=== PATIENT | female | born 1935 | race Caucasian/White ===

== ENCOUNTER 2018-11-19 21:10 | Inpatient (IN) | payer MEDICARE, OTHER ==
[~2018-11-19] VITALS: Ht 144.8 cm; Wt 51.9 kg
[2018-11-19] MEDS ORDERED: ONDANSETRON 4 MG INJ IV STA (21:22)
[2018-11-19] MEDS ORDERED: morphine 4 MG/ML VIAL IV STA (21:22)
[2018-11-19] MEDS ORDERED: ONDANSETRON 4 MG INJ IV PRN (22:30)
[2018-11-19] MEDS ORDERED: ACETAMINOPHEN 325 MG TAB PO PRN (22:30)
--- NOTE | 2018-11-19 22:56 | ERD ---
ER Documentation Chief Complaint Chief Complaint bib ra from home for left hip pain s/p fall in kitchen HPI Patient is a 83-year-old female with no medical problems who presents after a trip and fall. Please note that an [employer] multi care technician was used for the entire history and physical exam. The patient was brought in by ambulance. She had a trip and fall. She had left-sided hip pain. This happened just prior to arrival. She is not able to move her left hip at all. She has not gotten any pain medicines as of yet. She did not hit her head. Upon review of old medical records this is the patient's first visit to the emergency department. The patient does not know the name of the primary doctor. ROS All systems reviewed and are negative except as per history of present illness. Allergies Allergies: Coded Allergies: No Known Allergy (Unverified , 11/19/18) PMhx/Soc Medical and Surgical Hx: pt denies Medical Hx, pt denies Surgical Hx Hx Alcohol Use: No Hx Substance Use: No Hx Tobacco Use: No Smoking Status: Current every day smoker FmHx Family History: No diabetes Physical Exam Vitals Vital Signs Date Temp Pulse Resp B/P (MAP) Pulse Ox O2 O2 Flow FiO2 Time Delivery Rate 11/19/18 98.1 90 19 137/74 100 21:15 (95) Physical Exam Const: No acute distress Head: Atraumatic Eyes: Normal Conjunctiva ENT: Normal External Ears, Nose and Mouth. Neck: Full range of motion. No meningismus. Resp: Clear to auscultation bilaterally Cardio: Regular rate and rhythm, no murmurs Abd: Soft, non tender, non distended. Normal bowel sounds Skin: No petechiae or rashes Back: No midline or flank tenderness Ext: Exquisite pain in the left hip with even minimal range of motion Neur: Awake and alert Psych: Normal Mood and Affect Result Diagram: 11/19/18213111/19/182132 Results 24 hrs Laboratory Tests Test 11/19/18 21:32 11/19/18 21:33 White Blood Count 7.7 10^3/ul Red Blood Count 3.97 10^6/ul Hemoglobin 11.5 g/dl Hematocrit 35.7 % Mean Corpuscular Volume 89.9 fl Mean Corpuscular Hemoglobin 29.0 pg Mean Corpuscular Hemoglobin Concent 32.2 g/dl Red Cell Distribution Width 13.7 % Platelet Count 268 10^3/UL Mean Platelet Volume 9.4 fl Immature Granulocytes % 0.400 % Neutrophils % 65.8 % Lymphocytes % 27.8 % Monocytes % 5.2 % Eosinophils % 0.4 % Basophils % 0.4 % Nucleated Red Blood Cells % 0.0 /100WBC Immature Granulocytes # 0.030 10^3/ul Neutrophils # 5.1 10^3/ul Lymphocytes # 2.2 10^3/ul Monocytes # 0.4 10^3/ul Eosinophils # 0.0 10^3/ul Basophils # 0.0 10^3/ul Nucleated Red Blood Cells # 0.0 10^3/ul Prothrombin Time 14.1 Sec Prothrombin Time Ratio 1.1 INR International Normalized Ratio 1.08 Activated Partial Thromboplast Time 30.7 Sec Sodium Level 140 mmol/L Potassium Level 4.3 mmol/L Chloride Level 106 mmol/L Carbon Dioxide Level 29 mmol/L Anion Gap 5 Blood Urea Nitrogen 20 mg/dl Creatinine 0.71 mg/dl Est Glomerular Filtrat Rate mL/min mL/min Glucose Level 107 mg/dl Calcium Level 9.5 mg/dl Troponin I < 0.012 ng/ml Current Medications Medications Dose Sig/Alejo Start Time Status Last (Trade) Ordered Route PRN Stop Time Admin Dose Reason Admin Morphine 4 mg ONCE STAT 11/19/18 DC 11/19/18 Sulfate IV 21:22 11/19/18 21:47 (morphine) 21:23 Ondansetron 4 mg ONCE STAT 11/19/18 DC 11/19/18 HCl (Zofran IV 21:22 11/19/18 21:47 Inj) 21:23 Ondansetron 4 mg BRIDGE ORDER 11/19/18 HCl (Zofran PRN IV 22:30 11/20/18 Inj) NAUSEA/VOMITI 22:29 NG 650 mg ER BRIDGE 11/19/18 Acetaminophen PRN PO 22:30 11/20/18 (Tylenol .MILD PAIN 22:29 Tab) 1-3 OR TEMP Procedures/MDM X-ray Hip 2V Interpreted by me: Bones: Intertrochanteric hip fracture without displacement Joints: No dislocation Foreign body: None Chest x-ray read by radiology. EKG read by me: Rate/Rhythm: Regular rate and rhythm at a normal rate Intervals: Normal Impression: No evidence of ischemia or arrhythmia Smoking Cessation Therapy: Pt. was lectured for greater than 3 minutes on the health risks of continued smoking and the benefits of cessation. Patient is an 83-year-old female presents after a trip and fall. She has a left-sided hip fracture. I spoke with Dr. Anthony from orthopedic surgery who will see the patient in consultation. The patient will be admitted to the care of Dr. Sy from the panel team for an inpatient medical surgical bed. Departure Diagnosis: Primary Impression: Hip fracture Encounter type: initial encounter Fracture type: closed Laterality: left Qualified Codes: S72.002A - Fracture of unspecified part of neck of left femur, initial encounter for closed fracture Additional Impression: Fall Encounter type: initial encounter Qualified Codes: W19.XXXA - Unspecified fall, initial encounter Condition: CORI Newman MD November 19, 2018 22:56
[2018-11-19 23:32] VITALS: Ht 144.8 cm; Wt 51.9 kg
[2018-11-19 23:41] VITALS: BP 130/60; PULSE 72; RESP 18
[2018-11-20] VITALS (22 sets, daily range): BP systolic 108–162; BP diastolic 52–83; PULSE 64–88; RESP 10–22
[2018-11-20] MEDS ORDERED: HYDROCODONE/APAP (5/325) TAB PO PRN ×2 (01:00)
[2018-11-20] MEDS ORDERED: ONDANSETRON 4 MG INJ IV PRN ×2 (01:00→16:30)
[2018-11-20] MEDS ORDERED: NACL 0.9% 3 ML SYG IV SCH (01:00)
[2018-11-20] MEDS ORDERED: ALBUTEROL/IPRATROPIUM (NEB) 3 ML AMP HHN PRN (01:00)
--- NOTE | 2018-11-20 01:01 | CONS ---
Assessment/Plan Assessment/Plan Hospital Course (Demo Recall) 83-year-old female had a mechanical fall from one step sustained a minimally displaced left intertrochanteric hip fracture. She is a very active 83-year-old female and is completely independent. I discussed the benefits and risks with patient and family. Treatment options discussed. I strongly recommended surgical fixation with intramedullary nail. Risks include but not limited to anesthesia, medical complications, bleeding, infection, , DVT, nonunion, malunion, hardware failure, neurovascular injury, need for further surgery. He understood these benefits and risks and wished to proceed with surgery. Plan: Nonweightbearing left lower extremity Medical clearance N.p.o. Surgery plan for the evening of 11/20/2018 Elena catheter Pain control DVT prophylaxis: SCDs while admitted. Lovenox 40 mg daily x6 weeks will be started postop day #1 Consultation Date/Type/Reason Admit Date/Time November 19, 2018 at 22:26 Date of Consultation: November 19, 2018 Reason for Consultation Left IT fracture Date/Time of Note DATE: 11/20/18 TIME: 01:00 Hx of Present Illness 83-year-old female that down from a single step and fell onto her left side. She was unable to get up and bear weight. She presented to the emergency department evaluation at hospital where she was diagnosed with a left intertrochanteric hip fracture. Orthopedics was consulted. Patient denies pain elsewhere. Patient denies numbness and tingling. Patient denies any other medical problems. Pain is relatively well controlled when she is lying still. She is a very active 83-year-old female she does not use gait aids. She is completely independent. Patient denies fever, chills, shortness of breath, chest pain, nausea/vomiting, constipation, diarrhea, numbness, and tingling. Patient did have recent upper respiratory infection and was on antibiotics last week. Past Medical History Medications Current Medications Ondansetron HCl (Zofran Inj) 4 mg BRIDGE ORDER PRN IV NAUSEA/VOMITING; Start 11/19/18 at 22:30; Stop 11/20/18 at 22:29 Acetaminophen (Tylenol Tab) 650 mg ER BRIDGE PRN PO .MILD PAIN 1-3 OR TEMP; Start 11/19/18 at 22:30; Stop 11/20/18 at 22:29 Allergies: Coded Allergies: No Known Allergy (Unverified , 5/5/19) Social History Alcohol Use: none Smoking Status: Current every day smoker Drug Use: none Exam/Review of Systems Exam Vitals Vital Signs Date Temp Pulse Resp B/P (MAP) Pulse Ox O2 O2 Flow FiO2 Time Delivery Rate 11/19/18 98.1 72 18 130/60 93 Room Air 23:41 (83) Exam General: Awake, alert, in no acute distress, pleasant and cooperative Heart: regular rhythm Lungs: breathing comfortably, no tachypnea or dyspnea MUSCULOSKELETAL: Left lower extremity: Skin is intact. No significant shortening or asymmetric rotation compared to contralateral extremity Sensation intact to light touch in a sural, saphenous, deep peroneal, superficial peroneal, medial and lateral plantar nerve distribution. Motor is intact, patient able to dorsiflex and plantarflex ankle and extend and flex great toe. Dorsalis Pedis pulse +2, Brisk capillary refill. Compartments are soft. Calves non-tender to palpation bilaterally. Results Result Diagram: 11/19/18213111/19/182132 Results 24hrs Laboratory Tests Test 11/19/18 21:32 11/19/18 21:33 White Blood Count 7.7 Red Blood Count 3.97 L Hemoglobin 11.5 L Hematocrit 35.7 L Mean Corpuscular Volume 89.9 Mean Corpuscular Hemoglobin 29.0 Mean Corpuscular Hemoglobin Concent 32.2 Red Cell Distribution Width 13.7 Platelet Count 268 Mean Platelet Volume 9.4 Immature Granulocytes % 0.400 Neutrophils % 65.8 Lymphocytes % 27.8 Monocytes % 5.2 Eosinophils % 0.4 Basophils % 0.4 Nucleated Red Blood Cells % 0.0 Immature Granulocytes # 0.030 Neutrophils # 5.1 Lymphocytes # 2.2 Monocytes # 0.4 Eosinophils # 0.0 Basophils # 0.0 Nucleated Red Blood Cells # 0.0 Prothrombin Time 14.1 Prothrombin Time Ratio 1.1 INR International Normalized Ratio 1.08 Activated Partial Thromboplast Time 30.7 Sodium Level 140 Potassium Level 4.3 Chloride Level 106 Carbon Dioxide Level 29 Anion Gap 5 Blood Urea Nitrogen 20 Creatinine 0.71 Est Glomerular Filtrat Rate mL/min Glucose Level 107 Calcium Level 9.5 Troponin I < 0.012 Imaging Imaging AP pelvis, AP lateral left hip, AP lateral left femur demonstrate a minimally displaced left intratrochanteric hip fracture. Medications Medication Current Medications Ondansetron HCl (Zofran Inj) 4 mg BRIDGE ORDER PRN IV NAUSEA/VOMITING; Start 11/19/18 at 22:30; Stop 11/20/18 at 22:29 Acetaminophen (Tylenol Tab) 650 mg ER BRIDGE PRN PO .MILD PAIN 1-3 OR TEMP; Start 11/19/18 at 22:30; Stop 11/20/18 at 22:29 SHAHNAZ PEPPER MD November 20, 2018 01:01
[2018-11-20] MEDS: DEXTROSE 5%-0.45% NACL 1,000 ML IV SCH ×2 (01:38→13:16)
--- NOTE | 2018-11-20 06:57 | HP ---
Date/Time of Note Date/Time of Note DATE: 11/20/18 TIME: 06:48 Assessment/Plan VTE Prophylaxis Risk score (from Ns)>0 risk: 10 SCD applied (from [facility]): Yes SCD contraindicated: low risk/ambulating Pharmacological prophylaxis: NA/contraindicated Pharm contraindication: other (Awaiting orthopedic surgical intervention) Lines/Catheters [facility]ter [facility] (from [facility]): Peripheral IV Urinary Cath still in place: Yes Reason Cath still needed: other (indicate) (Patient with severe left hip pain) Assessment/Plan Assessment/Plan 83-year-old female with no significant past medical history presented with left hip pain status post fall and found to have minimally displaced left femoral intertrochanteric fracture PLAN -Keep n.p.o. with IV fluid -Pain management -Ortho following -Patient has no active cardiac symptoms. EKG without acute ischemic change. Patient has been active prior to this current situation. No indication for additional studies including 2D echo or a cardiac cath since the patient does not have acute cardiac symptoms and is no history of cardiopulmonary disease. She may proceed with planned surgery Result Diagram: 11/20/18 0414 11/19/18 2133 Results 24hrs Laboratory Tests Test 11/19/18 21:32 11/19/18 21:33 11/20/18 04:14 White Blood Count 7.7 9.2 Red Blood Count 3.97 L 3.51 L Hemoglobin 11.5 L 10.3 L Hematocrit 35.7 L 31.5 L Mean Corpuscular Volume 89.9 89.7 Mean Corpuscular Hemoglobin 29.0 29.3 Mean Corpuscular Hemoglobin Concent 32.2 32.7 Red Cell Distribution Width 13.7 14.0 Platelet Count 268 235 Mean Platelet Volume 9.4 9.9 Immature Granulocytes % 0.400 0.400 Neutrophils % 65.8 80.8 H Lymphocytes % 27.8 12.2 L Monocytes % 5.2 6.3 Eosinophils % 0.4 0.1 Basophils % 0.4 0.2 Nucleated Red Blood Cells % 0.0 0.0 Immature Granulocytes # 0.030 0.040 H Neutrophils # 5.1 7.4 Lymphocytes # 2.2 1.1 Monocytes # 0.4 0.6 Eosinophils # 0.0 0.0 Basophils # 0.0 0.0 Nucleated Red Blood Cells # 0.0 0.0 Prothrombin Time 14.1 Prothrombin Time Ratio 1.1 INR International Normalized Ratio 1.08 Activated Partial Thromboplast Time 30.7 Sodium Level 140 Potassium Level 4.3 Chloride Level 106 Carbon Dioxide Level 29 Anion Gap 5 Blood Urea Nitrogen 20 Creatinine 0.71 Est Glomerular Filtrat Rate mL/min Glucose Level 107 Calcium Level 9.5 Troponin I < 0.012 HPI/ROS Admit Date/Time Admit Date/Time November 19, 2018 at 22:26 Hx of Present Illness This is an 83-year-old female with no significant past medical history who presents to the ER complaining of left hip pain status post fall. Seems like she tripped going down a step. She denied dizziness, chest pain, palpitation or shortness of breath prior to her fall. No imaging in the ER shows Minimally displaced left femoral intertrochanteric fracture. She has been evaluated by Ortho with plan for surgical intervention. Currently, patient is only compla ining of pain when she moves and as a result she is afraid to go to the bathroom. She is okay with the placement of a Elena. Denies chest pain, shortness of breath, palpitation. PMH/Family/Social Past Medical History Medical History: other (See HPI) Medications Current Medications Ondansetron HCl (Zofran Inj) 4 mg BRIDGE ORDER PRN IV NAUSEA/VOMITING; Start 11/19/18 at 22:30; Stop 11/20/18 at 22:29 Acetaminophen (Tylenol Tab) 650 mg ER BRIDGE PRN PO .MILD PAIN 1-3 OR TEMP; Start 11/19/18 at 22:30; Stop 11/20/18 at 22:29 Dextrose/Sodium Chloride 1,000 ml @ 80 mls/hr [id number] IV Last administered on 11/20/18at 01:38; Admin Dose 80 MLS/HR; Start 11/20/18 at 00:59 IV Flush (NS 3 ml) 3 ml PER PROTOCOL IV ; Start 11/20/18 at 01:00 Ondansetron HCl (Zofran Inj) 4 mg Q6H PRN IV NAUSEA/VOMITING; Start 11/20/18 at 01:00 Acetaminophen (Tylenol Tab) 650 mg Q6H PRN PO .PAIN 1-3 OR TEMP; Start 11/20/18 at 01:00 Acetaminophen/ Hydrocodone Bitart ([place] (5/325)) 1 tab Q6H PRN PO .MOD PAIN 4- 6; Start 11/20/18 at 01:00 Acetaminophen/ Hydrocodone Bitart ([place] ()) 2 tab Q6H PRN PO .SEVERE PAIN 7-10; Start 11/20/18 at 01:00 Albuterol/ Ipratropium (Duoneb) 3 ml Q2H RESP THERAPY PRN HHN SHORTNESS OF BREATH; Start 11/20/18 at 01:00 Coded Allergies: No Known Allergy (Unverified , 11/19/18) Past Surgical History Past Surgical Hx: other (HPI) Family History Significant Family History: no pertinent family hx Social History Alcohol Use: none Smoking Status: Unknown if ever smoked Drug Use: none Exam/Review of Systems Vital Signs Vitals Vital Signs Date Temp Pulse Resp B/P (MAP) Pulse Ox O2 O2 Flow FiO2 Time Delivery Rate 11/19/18 98.1 72 18 130/60 93 Room Air 23:41 (83) Intake and Output 11/19/18 11/19/18 11/20/18 1515:00 23:00 07:00 IntakeIntake Total 320 ml BalanceBalance 320 ml Exam Constitutional: other (No acute distress) Head: normocephalic, atraumatic Eyes: EOMI, PERRL Respiratory: clear to auscultation, normal air movement Cardiovascular: regular rate and rhythm, nl pulses Gastrointestinal: soft, non-tender Extremities: normal pulses, other (Left hip pain elicited on palpation. Range of motion is limited due to pain) KIMBERLY AGUSTIN MD November 20, 2018 06:57
[2018-11-20] MEDS ORDERED: HYDROmorphONE 0.5 MG/0.5 ML SYG IV PRN (09:30)
[2018-11-20] MEDS ORDERED: OXYCODONE/ACETAMINOPHEN (5/325) TAB PO ONE (11:30)
--- NOTE | 2018-11-20 11:40 | PN ---
Date/Time of Note Date/Time of Note DATE: 11/20/18 TIME: 11:40 Assessment/Plan VTE Prophylaxis Risk score (from Ns)>0 risk: 10 SCD applied (from Ns): Yes Pharmacological prophylaxis: NA/contraindicated Pharm contraindication: surgical contra Lines/Catheters IV [facility] Type (from [facility]): Peripheral IV Urinary Cath still in place: Yes Reason Cath still needed: other (indicate) Assessment/Plan Hospital Course SUBJECTIVE: Having 10 out of 10 pain on hip OBJECTIVE: Vital signs-see below PHYSICAL EXAM: Constitutional: Adequately built,not in acute distress. HEENT: Head atraumatic and normocephalic. Eyes: Extraocular muscles intact. Ani cteric sclerae. Pupils equal bilaterally, reactive to light. NECK: Supple without lymph node. CHEST: Clear and good breath sounds equally. No wheezing. No rhonchi. HEART: S1, S2. Regular rate and rhythm. ABDOMEN: Soft/non tender with no rebound tenderness. Bowel sounds were present. EXTREMITIES: L Hip w/tenderness. No cyanosis, clubbing or edema. NEUROLOGIC: Alert and oriented x3. No focal deficit. No sensory deficit. PSYCHOSOCIAL: No signs of depression. INTEGUMENTARY: No open wounds. ASSESSMENT AND PLAN:83 yo f w/no pmh here with mechanical fall/left displaced intertrochanteric hip fracture... 1. Acute left displaced intertrochanteric hip fracture -Plan is surgical fixation today. -dvt ppx, pain control.. 2. Chronic anemia. -Stable H&H. DVT prophylaxis: SCDs per orthopedic recommendation followed by Lovenox starting on POD #1. Preoperative risk stratification: In light of advanced age, I will also obtain 2D echocardiogram prior to procedure. Given patient's medical condition, patient is at intermediate risk for any untoward medical events for surgery. However, benefit likely outweigh risks and recommended to have surgical intervention. Recommend using standard anesthesia cautions. Disposition: Follow-up orthopedic recommendation postoperatively. Patient was seen in collaboration with Dr. Jimenez. Result Diagram: 11/20/18 0414 11/20/18 0414 Results 24hrs Laboratory Tests Test 11/19/18 21:32 11/19/18 21:33 11/20/18 04:14 White Blood Count 7.7 9.2 Red Blood Count 3.97 L 3.51 L Hemoglobin 11.5 L 10.3 L Hematocrit 35.7 L 31.5 L Mean Corpuscular Volume 89.9 89.7 Mean Corpuscular Hemoglobin 29.0 29.3 Mean Corpuscular Hemoglobin Concent 32.2 32.7 Red Cell Distribution Width 13.7 14.0 Platelet Count 268 235 Mean Platelet Volume 9.4 9.9 Immature Granulocytes % 0.400 0.400 Neutrophils % 65.8 80.8 H Lymphocytes % 27.8 12.2 L Monocytes % 5.2 6.3 Eosinophils % 0.4 0.1 Basophils % 0.4 0.2 Nucleated Red Blood Cells % 0.0 0.0 Immature Granulocytes # 0.030 0.040 H Neutrophils # 5.1 7.4 Lymphocytes # 2.2 1.1 Monocytes # 0.4 0.6 Eosinophils # 0.0 0.0 Basophils # 0.0 0.0 Nucleated Red Blood Cells # 0.0 0.0 Prothrombin Time 14.1 Prothrombin Time Ratio 1.1 INR International Normalized Ratio 1.08 Activated Partial Thromboplast Time 30.7 Sodium Level 140 139 Potassium Level 4.3 4.2 Chloride Level 106 106 Carbon Dioxide Level 29 27 Anion Gap 5 6 Blood Urea Nitrogen 20 17 Creatinine 0.71 0.55 Est Glomerular Filtrat Rate mL/min Glucose Level 107 148 # Calcium Level 9.5 9.2 Troponin I < 0.012 Phosphorus Level 3.9 Magnesium Level 2.1 Total Bilirubin 0.2 Direct Bilirubin 0.00 Indirect Bilirubin 0.2 Aspartate Amino Transf (AST/SGOT) 16 Alanine Aminotransferase (ALT/SGPT) 21 Alkaline Phosphatase 47 Total Protein 6.4 Albumin 3.4 Globulin 3.00 Albumin/Globulin Ratio 1.13 Exam/Review of Systems Exam Vitals Vital Signs Date Temp Pulse Resp B/P (MAP) Pulse Ox O2 O2 Flow FiO2 Time Delivery Rate 11/20/18 98.0 77 18 108/55 92 Room Air 07:30 (72) Intake and Output 11/19/18 11/19/18 11/20/18 1414:59 22:59 06:59 IntakeIntake Total 320 ml BalanceBalance 320 ml Results Results 24hrs Laboratory Tests Test 11/19/18 21:32 11/19/18 21:33 11/20/18 04:14 White Blood Count 7.7 9.2 Red Blood Count 3.97 L 3.51 L Hemoglobin 11.5 L 10.3 L Hematocrit 35.7 L 31.5 L Mean Corpuscular Volume 89.9 89.7 Mean Corpuscular Hemoglobin 29.0 29.3 Mean Corpuscular Hemoglobin Concent 32.2 32.7 Red Cell Distribution Width 13.7 14.0 Platelet Count 268 235 Mean Platelet Volume 9.4 9.9 Immature Granulocytes % 0.400 0.400 Neutrophils % 65.8 80.8 H Lymphocytes % 27.8 12.2 L Monocytes % 5.2 6.3 Eosinophils % 0.4 0.1 Basophils % 0.4 0.2 Nucleated Red Blood Cells % 0.0 0.0 Immature Granulocytes # 0.030 0.040 H Neutrophils # 5.1 7.4 Lymphocytes # 2.2 1.1 Monocytes # 0.4 0.6 Eosinophils # 0.0 0.0 Basophils # 0.0 0.0 Nucleated Red Blood Cells # 0.0 0.0 Prothrombin Time 14.1 Prothrombin Time Ratio 1.1 INR International Normalized Ratio 1.08 Activated Partial Thromboplast Time 30.7 Sodium Level 140 139 Potassium Level 4.3 4.2 Chloride Level 106 106 Carbon Dioxide Level 29 27 Anion Gap 5 6 Blood Urea Nitrogen 20 17 Creatinine 0.71 0.55 Est Glomerular Filtrat Rate mL/min Glucose Level 107 148 # Calcium Level 9.5 9.2 Troponin I < 0.012 Phosphorus Level 3.9 Magnesium Level 2.1 Total Bilirubin 0.2 Direct Bilirubin 0.00 Indirect Bilirubin 0.2 Aspartate Amino Transf (AST/SGOT) 16 Alanine Aminotransferase (ALT/SGPT) 21 Alkaline Phosphatase 47 Total Protein 6.4 Albumin 3.4 Globulin 3.00 Albumin/Globulin Ratio 1.13 Medications Medication Current Medications Ondansetron HCl (Zofran Inj) 4 mg BRIDGE ORDER PRN IV NAUSEA/VOMITING Last administered on 11/20/18at 09:31; Admin Dose 4 MG; Start 11/19/18 at 22:30; Stop 11/20/18 at 22:29 Acetaminophen (Tylenol Tab) 650 mg ER BRIDGE PRN PO .MILD PAIN 1-3 OR TEMP; Start 11/19/18 at 22:30; Stop 11/20/18 at 22:29 Dextrose/Sodium Chloride 1,000 ml @ 80 mls/hr [id number] IV Last administered on 11/20/18at 01:38; Admin Dose 80 MLS/HR; Start 11/20/18 at 00:59 IV Flush (NS 3 ml) 3 ml PER PROTOCOL IV ; Start 11/20/18 at 01:00 Ondansetron HCl (Zofran Inj) 4 mg Q6H PRN IV NAUSEA/VOMITING; Start 11/20/18 at 01:00 Acetaminophen (Tylenol Tab) 650 mg Q6H PRN PO .PAIN 1-3 OR TEMP; Start 11/20/18 at 01:00 Albuterol/ Ipratropium (Duoneb) 3 ml Q2H RESP THERAPY PRN HHN SHORTNESS OF BREATH; Start 11/20/18 at 01:00 Hydromorphone HCl (Dilaudid) 0.5 mg Q4H PRN IV SEVERE PAIN LEVEL 7-10 Last administered on 11/20/18at 09:31; Admin Dose 0.5 MG; Start 11/20/18 at 09:30 Oxycodone/ Acetaminophen (Percocet (5/ 325)) 1 tab ONCE ONCE PO ; Start 11/20/18 at 11:30; Stop 11/20/18 at 11:31; Status UNGE BROWNING NP November 20, 2018 11:40
--- NOTE | 2018-11-20 15:29 | RADRPT ---
Echocardiogram Report Patient Name: Jeannette MAXWELLent ID: [id number] : 1935 (83y 4m)Study Date: 11/20/2018 11:29:23 AM Gender: FAccession #: [id number] Tech: Jay Castillo [facility] Location: 429-A Ref.Physician: GE PATE Height(Cm): BSA: Weight(Kg): Quality: AdequateAccount #: Procedures: Echocardiographic Report: Transthoracic echocardiogram with complete 2D, M-Mode, and doppler examination. Indications: Pre-op. Measurements: 2D/M Mode Doppler Measurement Value Normal Range Measurement Value Normal Range LVIDd 2D 3.2 [ 3.8 - 5.2 ] cm AV Peak David 1.7 [ 100.0 - 170.0 ] cm/sec LVIDs 2D 2.1 [ 2.2 - 3.5 ] cm AV Peak PG 11.0 [ 2.0 - 9.0 ] mmHg LVPWd 2D 0.9 [ 0.6 - 0.9 ] cm AI Peak PG 88.0 mmHg IVSd 2D 2.0 [ 0.6 - 0.9 ] cm AI Peak David 4.7 cm/sec AoR Diam 2D 3.4 [ 2.3 - 3.1 ] cm AI PHT 372.0 msec EDV 2D 40.3 [ 46.0 - 106.0 ] ml LVOT Peak David 1.0 [ 70.0 - 110.0 ] cm/sec ESV 2D 14.6 [ 14.0 - 42.0 ] ml LVOT Peak PG 4.0 [ 2.0 - 6.0 ] mmHg EF 2D 63.8 [ 54.0 - 74.0 ] percent MV E Peak David 0.8 [ 60.0 - 130.0 ] cm/sec LA Dimen 2D 3.3 [ 2.7 - 3.8 ] cm MV A Peak David 1.1 [ 100.0 - 120.0 ] cm/sec MV E/A 0.8 [ 0.8 - 1.5 ] ratio MV Decel Time 165 [ 104 - 258 ] msec Lat E` David 0.1 [ 10.0 - 15.0 ] cm/sec Lateral E/E` 10.1 [ 1.0 - 2.0 ] ratio MV E/A 0.8 [ 0.8 - 1.5 ] ratio TR Peak David 2.9 [ 100.0 - 280.0 ] cm/sec TR Peak PG 34.0 mmHg RVSP 44.0 [ 10.0 - 36.0 ] mmHg Findings: Left Ventricle: Normal left ventricular systolic function. Normal left ventricular cavity size. Sigmoid septum. Ejection fraction is visually estimated at 55 %. Tissue Doppler/Mitral Doppler indices are consistent with impaired relaxation (Stage I diastolic dysfunction). Right Ventricle: Normal right ventricular size. Normal right ventricular systolic function. Left Atrium: The left atrium is normal in size. Right Atrium: The right atrium is normal in size. Mitral Valve: Mild mitral leaflet calcification. Mild mitral annular calcification. Mild mitral valve regurgitation. Aortic Valve: No hemodynamically significant aortic stenosis by doppler. Aortic cusps appear mildly calcified. Moderate aortic valve regurgitation. Tricuspid Valve: Normal appearance of the tricuspid valve. Estimated peak PA systolic pressure 44 mmHg. There is moderate tricuspid regurgitation. Pericardium: Normal pericardium with no significant pericardial effusion. Aorta: Ascending aorta is dilated. Ascending Aorta 3.80 cm. IVC: Normal size and no respiratory collapse consistent with elevated right atrial pressure. Conclusions: Normal left ventricular systolic function. Normal left ventricular cavity size. Sigmoid septum. Ejection fraction is visually estimated at 55 %. Tissue Doppler/Mitral Doppler indices are consistent with impaired relaxation (Stage I diastolic dysfunction). Mild mitral leaflet calcification. Mild mitral annular calcification. Mild mitral valve regurgitation. No hemodynamically significant aortic stenosis by doppler. Aortic cusps appear mildly calcified. Moderate aortic valve regurgitation. Normal appearance of the tricuspid valve. Estimated peak PA systolic pressure 44 mmHg. There is moderate tricuspid regurgitation. Normal size and no respiratory collapse consistent with elevated right atrial pressure. Ascending aorta is dilated. Ascending Aorta 3.80 cm. Electronically Signed By: Timo Joel 2018-11-20 15:27:49 PDT
--- NOTE | 2018-11-20 16:14 | HPN ---
Date/Time of Note Date/Time of Note DATE: 11/20/18 TIME: 16:14 Interval H&P Admission Note Pt. seen H&P reviewed: No system changes Patient denies fever, chills, shortness of breath, chest pain, nausea/vomiting, constipation, diarrhea, numbness, and tingling. MUSCULOSKELETAL: Left Lower extremity Skin intact. Sensation intact to light touch in a sural, saphenous, deep peroneal, superficial peroneal, medial and lateral plantar nerve distribution. Motor is intact, patient able to dorsiflex and plantarflex ankle and extend and flex great toe. Dorsalis Pedis pulse +2, Brisk capillary refill. Compartments are soft. Calves non-tender to palpation bilaterally. SHAHNAZ PEPPER MD November 20, 2018 16:14
--- NOTE | 2018-11-20 16:17 | PREAC ---
Date/Time of Note Date/Time of Note DATE: 11/20/18 TIME: 16:15 Anesthesia Eval and Record Evaluation Time Pre-Procedure Interview DATE: 11/20/18 TIME: 16:15 Age 83 Sex female NPO: 8 hrs Preoperative diagnosis LEFT HIP INTERTROCHANTERIC FRACTURE Planned procedure ORIF LEFT HIP INTERTROCHANTERIC FRACTURE Past Medical History Past Medical History: Includes (SMOKING 20 PY) Surgery & Anesthesia Issues No known issue Meds Anticoagulation: No Beta Teresa within 24 hr: No Reason Beta Teresa not given: Pt. not on B-Teresa Current Medications Ondansetron HCl (Zofran Inj) 4 mg BRIDGE ORDER PRN IV NAUSEA/VOMITING Last administered on 11/20/18at 09:31; Admin Dose 4 MG; Start 11/19/18 at 22:30; Stop 11/20/18 at 22:29 Acetaminophen (Tylenol Tab) 650 mg ER BRIDGE PRN PO .MILD PAIN 1-3 OR TEMP; Start 11/19/18 at 22:30; Stop 11/20/18 at 22:29 Dextrose/Sodium Chloride 1,000 ml @ 80 mls/hr [id number] IV Last administered on 11/20/18at 13:16; Admin Dose 80 MLS/HR; Start 11/20/18 at 00:59 IV Flush (NS 3 ml) 3 ml PER PROTOCOL IV ; Start 11/20/18 at 01:00 Ondansetron HCl (Zofran Inj) 4 mg Q6H PRN IV NAUSEA/VOMITING; Start 11/20/18 at 01:00 Acetaminophen (Tylenol Tab) 650 mg Q6H PRN PO .PAIN 1-3 OR TEMP; Start 11/20/18 at 01:00 Albuterol/ Ipratropium (Duoneb) 3 ml Q2H RESP THERAPY PRN HHN SHORTNESS OF BREATH; Start 11/20/18 at 01:00 Hydromorphone HCl (Dilaudid) 0.5 mg Q4H PRN IV SEVERE PAIN LEVEL 7-10 Last administered on 11/20/18at 09:31; Admin Dose 0.5 MG; Start 11/20/18 at 09:30 Meds reviewed: Yes Allergies Coded Allergies: No Known Allergy (Unverified , 11/19/18) Allergies Reviewed: Yes Labs/Studies Labs Reviewed: Reviewed by anesthesiologist Result Diagram: 11/20/18 0414 11/20/18 0414 Laboratory Tests 11/20/18 04:14 test: N/A Studies: ECG (NL), CXR (Calcified aorta consistent with atherosclerotic disease.) Pre-procedure Exam Last vitals Vital Signs Date Temp Pulse Resp B/P (MAP) Pulse Ox O2 O2 Flow FiO2 Time Delivery Rate 11/20/18 98.4 64 18 122/56 99 Room Air 15:51 (78) 11/20/18 2.0 08:00 Airway: Adequate mouth opening, Adequate thyromental dist Mallampati: Mallampati II Teeth: Abnormal (NO TEETH) Lung: Normal Heart: Normal ASA Physical Status ASA physical status: 2 Emergency: None Planned Anesthetic General/MAC: ETT Planned Pain Management Parenteral pain med Pre-operative Attestations Prior to commencing anesthesia and surgery, the patient was re-evaluated, there was verification of: *The patient's identity *The results of appropriate recent lab work and preoperative vital signs *The above evaluation not changing prior to induction *Anesthetic plan, risk benefits, alternative and complications discussed with patient/family; questions answered; patient/family understands, accepts and wishes to proceed. Kevin Thornton M.D. November 20, 2018 16:17
[2018-11-20] MEDS ORDERED: NEOSTIGMINE 3 MG/3 ML SYRINGE ONE (16:20)
[2018-11-20] MEDS ORDERED: PROPOFOL 20 ML ONE (16:20)
[2018-11-20] MEDS ORDERED: CEFAZOLIN 1 GM INJ ONE (16:20)
[2018-11-20] MEDS ORDERED: ONDANSETRON 4 MG INJ ONE (16:20)
[2018-11-20] MEDS ORDERED: POLYMYXIN/BACITRACIN 1L IRRIG ONE (16:20)
[2018-11-20] MEDS ORDERED: MIDAZOLAM 1 MG/ML 2 ML INJ ONE (16:20)
[2018-11-20] MEDS ORDERED: DEXAMETHASONE 4 MG/ML 5 ML INJ ONE (16:20)
[2018-11-20] MEDS ORDERED: FENTAnyl 50 MCG/ML VIAL ONE (16:20)
[2018-11-20] MEDS ORDERED: GLYCOPYRROLATE 0.4 MG INJ ONE (16:20)
[2018-11-20] MEDS ORDERED: ROCURONIUM 50 MG INJ ONE (16:20)
[2018-11-20] MEDS ORDERED: ROPIVACAINE 0.5 % 30 ML VIAL ONE (16:26)
[2018-11-20] MEDS ORDERED: LABETALOL HCL 20MG INJ IV PRN (16:30)
[2018-11-20] MEDS ORDERED: TRIMETHOBENZAMIDE 100 MG/ML VIAL IM PRN (16:30)
[2018-11-20] MEDS ORDERED: DIPHENHYDRAMINE 50 MG INJ IV PRN (16:30)
[2018-11-20] MEDS ORDERED: hydrALAzine 20 MG INJ IV PRN (16:30)
[2018-11-20] MEDS ORDERED: ALBUTEROL 0.083% (NEB) 2.5 MG/3 ML AMP HHN PRN (16:30)
[2018-11-20] MEDS ORDERED: MIDAZOLAM 1 MG/ML 2 ML INJ IV PRN (16:30)
[2018-11-20] MEDS ORDERED: MEPERIDINE 25 MG INJ IV PRN (16:30)
[2018-11-20] MEDS ORDERED: FENTAnyl 50 MCG/ML VIAL IV PRN ×2 (16:30)
[2018-11-20] MEDS ORDERED: IPRATROPIUM (NEB) 0.5 MG/2.5 ML AMP HHN PRN (16:30)
[2018-11-20] MEDS ORDERED: HYDROmorphONE 1 MG/5 ML IV SYRINGE IV PRN ×3 (16:30)
[2018-11-20] MEDS ORDERED: OXYCODONE/ACETAMINOPHEN (5/325) TAB PO PRN ×2 (16:30)
[2018-11-20] MEDS ORDERED: EPHEDrine SULFATE 50 MG/5 ML SYG IV PRN (16:30)
[2018-11-20] MEDS ORDERED: SUGAMMADEX SODIUM 200 MG/2 ML VIAL IV ONE (19:03)
--- NOTE | 2018-11-20 19:18 | PAC ---
Date/Time of Note Date/Time of Note DATE: 11/20/18 TIME: 19:18 Post-Anesthesia Notes Post-Anesthesia Note Last documented vital signs Vital Signs Date Temp Pulse Resp B/P (MAP) Pulse Ox O2 O2 Flow FiO2 Time Delivery Rate 11/20/18 98.4 64 18 122/56 99 Room Air 15:51 (78) 11/20/18 2.0 08:00 Activity: WNL Respiratory function: WNL Cardiovascular function: WNL Mental status: Baseline Pain reasonably controlled: Yes Hydration appropriate: Yes Nausea/Vomiting absent: Yes Kevin Thornton M.D. November 20, 2018 19:18
[2018-11-20] MEDS: FENTAnyl 50 MCG/ML VIAL IV PRN ×2 (19:39→19:54)
[2018-11-20] MEDS: CEFAZOLIN 1 GM/50 ML (PMX) 50 ML IVPB SCH (22:21)
[2018-11-21 00:41] VITALS: BP 111/57; PULSE 87; RESP 18
--- NOTE | 2018-11-21 01:28 | OPR ---
Date/Time of Note Date/Time of Note DATE: 11/21/18 TIME: : Operative Report Procedure Date: November 21, 2018 Preoperative Diagnosis Left intertrochanteric hip fracture Postoperative Diagnosis As above Operation/Procedure Performed Intramedullary nail of left intertrochanteric hip fracture Surgeon see signature line Entry Level Marketing Assistant None Anesthesia Type: general Estimated Blood Loss: 50 - 100 ml's Transfusion none Specimen None Grafts/Implants Hampton Gamma nail [id number] degree angle Lag screw 85 mm Distal interlocking screw Tubes/Drains None Complications none Pt Condition Post Procedure: stable Disposition: PACU Procedure Description Indications and consent: This is a 83-year-old woman with significant history of smoking who presented to the emergency department after a mechanical fall and sustained a left intertrochanteric hip fracture. Orthopedics was consulted. Preoperative clearance process was begun. I discussed treatment options with the patient. I recommended surgical treatment as nonoperative treatment would leave the patient bed bound. I reviewed the benefits and risks. The risks include but not l imited to medical complications, cardiopulmonary complications, anesthetic complications, bleeding, infection, nonunion, malunion, hardware failure, continued pain, need for further surgery, need for removal of hardware, neurovascular injury. The patient understood these benefits and risks and wished to proceed with surgery. Procedure in detail: Patient was brought to the operating room. The patient was given a general anesthetic and placed in supine position on the Donovan table. All bony prominences were well-padded. Patient was appropriately positioned and put in traction on the left lower extremity. At this time fluoroscopy was used to confirm positioning as well as reduction of left intertrochanteric hip fracture. At this time the left lower extremity was prepped and draped in normal sterile fashion. A timeout was performed confirming the patient's name, medical record number, diagnosis, procedure performed, and laterality procedure. 2 g of Ancef was dosed. Fluoroscopy was used to localize the tip of greater trochanter and obtain the longitudinal axis of the femur. A #10 blade was used to make a skin incision several centimeters proximal and posterior to the tip of the greater trochanter. IT band was sharply incised. Tip of the greater trochanter could be palpated. The guidepin was then placed on the tip of the greater trochanter. Placement was confirmed on both AP and lateral fluoroscopy. The pin was then driven down with a wire [employer] hazmat tanker driver just past the lesser trochanter. Soft tissue guide was placed over the guidepin followed by the opening reamer. This was then removed. A ball-tipped guidewire with a bend was placed into the opening hole. The guide wire was confirmed to be in the femur on both AP and lateral films. It was placed in the center of the femur distally in both the AP and lateral planes. This was measured at approximately 3060 mm, a 340 mm length nail was chosen. The canal was quite capacious began reaming with a 10 mm reamer and sequentially reamed up to a 12 mm reamer where there was appropriate chatter at the isthmus. Therefore a 10 x 340 mm nail with 125 degree angle was chosen. This was then placed over the guidewire until the proper depth was obtained in the guidewire was then pulled out. A small 2 cm incision was made over the location of the future lag screw. The lag screw sleeve was placed through the jig and a guidepin was placed center center in the femoral head which was confirmed on both AP and lateral fluoroscopy. The pin was driven to the subchondral bone. This measured 80 mm. Therefore reamed to 90 mm and placed a 85 mm screw. Fracture was then compressed. This was confirmed on fluoroscopy. The set screw was then tightened all the way down. The screw was center center in the femoral head on both AP and lateral films. Our attention turned distally where the distal targeter was utilized. This was a stable fracture pattern and it was decided on one distal interlocking screw was needed. Appropriate drill was used to drill through trocar followed by the appropriate length screws. All jigs and hardware was removed and final x-rays were obtained confirming good reduction of the fracture and positioning placement of the hardware. At this time all wounds were closely irrigated. The IT band was closed with #1 Vicryl in [id number] fashion followed by subcutaneous closure and octavio for the skin. The lag screw and interlocking screw incisions were closed with 2-0 Vicryl and skin for octavio. The dressings were covered with Mepilex dressing. All counts were correct x2 Disposition: Patient was awoken from anesthesia and transferred back in stable condition. Patient will be weight-bear as tolerated in the left lower extremity. Will receive Ancef 2 g for 24 hours postop. The patient will be on DVT prophylaxis, lovenox 40mg daily x6 weeks and SCDs while admitted. I like to see the patient in clinic in 2 weeks. Implants Dalila gamma cephalo-medullary nail size 10 x 340, 125 degree angle 85 mm lag screw 1 distal interlocking screws SHAHNAZ PEPPER MD November 21, 2018 01:28
[2018-11-21] MEDS: DEXTROSE 5%-0.45% NACL 1,000 ML IV SCH (05:21)
[2018-11-21] MEDS: CEFAZOLIN 1 GM/50 ML (PMX) 50 ML IVPB SCH ×2 (05:22→13:38)
[2018-11-21 07:52] VITALS: BP 135/65; PULSE 77; RESP 19
[2018-11-21] MEDS: ENOXAPARIN 40 MG/0.4 ML SYG SC SCH (09:11)
[2018-11-21] MEDS: ACETAMINOPHEN 325 MG TAB PO PRN ×3 (09:25→21:42)
--- NOTE | 2018-11-21 12:32 | PN ---
Date/Time of Note Date/Time of Note DATE: 11/21/18 TIME: 12:31 Assessment/Plan VTE Prophylaxis Risk score (from Nsg)>0 risk: 10 SCD applied (from Nsg): Yes Pharmacological prophylaxis: LMWH Lines/Catheters IV Catheter Type (from Nrsg): Peripheral IV Urinary Cath still in place: Yes Reason Cath still needed: other (indicate) (DC TODAY) Assessment/Plan Hospital Course SUBJECTIVE: POD #1, no overnight episodes. OBJECTIVE: Vital signs-see below PHYSICAL EXAM: Constitutional: Adequately built,not in acute distress. HEENT: Head atraumatic and normocephalic. Eyes: Extraocular muscles intact. Anicteric sclerae. Pupils equal bilaterally, reactive to light. NECK: Supple without lymph node. CHEST: Clear and good breath sounds equally. No wheezing. No rhonchi. HEART: S1, S2. Regular rate and rhythm. ABDOMEN: Soft/non tender with no rebound tenderness. Bowel sounds were present. EXTREMITIES: L Hip w/ intact dressing. no oozing. No cyanosis, clubbing or edema. NEUROLOGIC: Alert and oriented x3. No focal deficit. No sensory deficit. PSYCHOSOCIAL: No signs of depression. INTEGUMENTARY: No open wounds. ASSESSMENT AND PLAN:83 yo f w/no pmh here with mechanical fall/left displaced intertrochanteric hip fracture... 1. Acute left displaced intertrochanteric hip fracture -S/p Intramedullary nail of left intertrochanteric hip fracture 12/2018 -dvt ppx, pain control.. 2. Chronic anemia. -Stable H&H. DVT prophylaxis: Lovenox Disposition: Continue PT sessions, ARU eval and likely DC in a.m. Patient was seen in collaboration with Dr. Jimenez. Result Diagram: 11/21/18 0506 11/21/18 0506 Results 24hrs Laboratory Tests Test 11/21/18 05:06 White Blood Count 9.0 Red Blood Count 3.49 L Hemoglobin 10.3 L Hematocrit 31.7 L Mean Corpuscular Volume 90.8 Mean Corpuscular Hemoglobin 29.5 Mean Corpuscular Hemoglobin Concent 32.5 Red Cell Distribution Width 13.6 Platelet Count 226 Mean Platelet Volume 9.9 Immature Granulocytes % 0.300 Neutrophils % 87.6 H Lymphocytes % 6.8 L Monocytes % 5.2 Eosinophils % 0.0 Basophils % 0.1 Nucleated Red Blood Cells % 0.0 Immature Granulocytes # 0.030 Neutrophils # 7.8 H Lymphocytes # 0.6 L Monocytes # 0.5 Eosinophils # 0.0 Basophils # 0.0 Nucleated Red Blood Cells # 0.0 Sodium Level 140 Potassium Level 4.3 Chloride Level 104 Carbon Dioxide Level 31 Anion Gap 5 Blood Urea Nitrogen 9 Creatinine 0.56 Est Glomerular Filtrat Rate mL/min Glucose Level 145 Calcium Level 9.1 Phosphorus Level 4.0 Magnesium Level 1.9 Exam/Review of Systems Exam Vitals Vital Signs Date Temp Pulse Resp B/P (MAP) Pulse Ox O2 O2 Flow FiO2 Time Delivery Rate 11/21/18 97.9 77 19 135/65 100 Nasal 07:52 (88) Cannula 11/21/18 2.0 02:39 Intake and Output 11/20/18 11/20/18 11/21/18 1414:59 22:59 06:59 IntakeIntake Total 680 ml 1890 ml 450 ml OutputOutput Total 450 ml 1050 ml 450 ml BalanceBalance 230 ml 840 ml 0 ml Results Results 24hrs Laboratory Tests Test 11/21/18 05:06 White Blood Count 9.0 Red Blood Count 3.49 L Hemoglobin 10.3 L Hematocrit 31.7 L Mean Corpuscular Volume 90.8 Mean Corpuscular Hemoglobin 29.5 Mean Corpuscular Hemoglobin Concent 32.5 Red Cell Distribution Width 13.6 Platelet Count 226 Mean Platelet Volume 9.9 Immature Granulocytes % 0.300 Neutrophils % 87.6 H Lymphocytes % 6.8 L Monocytes % 5.2 Eosinophils % 0.0 Basophils % 0.1 Nucleated Red Blood Cells % 0.0 Immature Granulocytes # 0.030 Neutrophils # 7.8 H Lymphocytes # 0.6 L Monocytes # 0.5 Eosinophils # 0.0 Basophils # 0.0 Nucleated Red Blood Cells # 0.0 Sodium Level 140 Potassium Level 4.3 Chloride Level 104 Carbon Dioxide Level 31 Anion Gap 5 Blood Urea Nitrogen 9 Creatinine 0.56 Est Glomerular Filtrat Rate mL/min Glucose Level 145 Calcium Level 9.1 Phosphorus Level 4.0 Magnesium Level 1.9 Medications Medication Current Medications Dextrose/Sodium Chloride 1,000 ml @ 80 mls/hr [id number] IV Last administered on 11/21/18at 05:21; Admin Dose 80 MLS/HR; Start 11/20/18 at 00:59 IV Flush (NS 3 ml) 3 ml PER PROTOCOL IV ; Start 11/20/18 at 01:00 Ondansetron HCl (Zofran Inj) 4 mg Q6H PRN IV NAUSEA/VOMITING; Start 11/20/18 at 01:00 Acetaminophen (Tylenol Tab) 650 mg Q6H PRN PO .PAIN 1-3 OR TEMP Last administered on 11/21/18at 09:25; Admin Dose 650 MG; Start 11/20/18 at 01:00 Albuterol/ Ipratropium (Duoneb) 3 ml Q2H RESP THERAPY PRN HHN SHORTNESS OF BREATH; Start 11/20/18 at 01:00 Hydromorphone HCl (Dilaudid) 0.5 mg Q4H PRN IV SEVERE PAIN LEVEL 7-10 Last administered on 11/20/18at 09:31; Admin Dose 0.5 MG; Start 11/20/18 at 09:30 Cefazolin Sodium 50 ml @ 100 mls/hr Q8 IVPB Last administered on 11/21/18at 05:22; Admin Dose 100 MLS/HR; Start 11/20/18 at 22:00; Stop 11/21/18 at 14:29 Enoxaparin Sodium (Lovenox) 40 mg DAILY SC Last administered on 11/21/18at 09:11; Admin Dose 40 MG; Start 11/21/18 at 09:00 GE PATE NP November 21, 2018 12:32
[2018-11-21 14:51] VITALS: BP 110/53; PULSE 91; RESP 18
[2018-11-21] MEDS ORDERED: oxyCODONE 5 MG TAB PO PRN (18:30)
--- NOTE | 2018-11-21 18:32 | PN ---
Date/Time of Note Date/Time of Note DATE: 11/21/18 TIME: 18:30 Assessment/Plan Lines/Catheters IV Catheter Type (from Nrsg): Peripheral IV Elena in Place (from Nrsg): No Assessment/Plan Chief Complaint/Hosp Course 83-year-old female POD#1 s/p IM nail left IT fracture. -Post op H&H stable -PT/OT. -Joints pain control protocol -DVT prophylaxis: SCD's, Lovenox 40 mg daily x6 weeks -Weight bearing status: as tolerated -Abx: 24h ancef -Diet: ADAT -Elena: DC -Discharge planning consult Follow-up with me in clinic in 2 weeks Subjective 24 Hr Interval Summary Patient doing well No acute events overnight Pain is well controlled Exam/Review of Systems Vital Signs Vitals Vital Signs Date Temp Pulse Resp B/P (MAP) Pulse Ox O2 O2 Flow FiO2 Time Delivery Rate 11/21/18 97.9 91 18 110/53 91 14:51 (72) 11/21/18 Nasal 07:52 Cannula 11/21/18 2.0 02:39 Intake and Output 11/20/18 11/20/18 11/21/18 1414:59 22:59 06:59 IntakeIntake Total 680 ml 1890 ml 450 ml OutputOutput Total 450 ml 1050 ml 450 ml BalanceBalance 230 ml 840 ml 0 ml Exam Free Text/Dictation Left lower extremity: Dressing: clean, dry, and intact, no erythema Sensation intact to light touch in a sural, saphenous, deep peroneal, superficial peroneal, medial and lateral plantar nerve distribution. Motor is intact, patient able to dorsiflex and plantarflex ankle and extend and flex great toe. Dorsalis Pedis pulse +2, Brisk capillary refill. Compartments are soft. Calves non-tender to palpation bilaterally. Results Result Diagram: 11/21/18 0506 11/21/18 0506 SHAHNAZ PEPPER MD November 21, 2018 18:32
[2018-11-21 20:39] VITALS: BP 121/59; PULSE 90; RESP 18
[2018-11-21 21:15] VITALS: BP 125/61; PULSE 91; RESP 18
[2018-11-22] MEDS: ACETAMINOPHEN 325 MG TAB PO PRN ×2 (05:50→15:12)
[2018-11-22 07:12] VITALS: BP 122/60; PULSE 86; RESP 18
[2018-11-22] MEDS: ENOXAPARIN 40 MG/0.4 ML SYG SC SCH (09:02)
--- NOTE | 2018-11-22 11:30 | PDOCDIS ---
Discharge Instructions CONDITION [id number] Patient Condition: Fexpe4m Stable HOME CARE INSTRUCTIONS: [id number] Diet Instructions: [id number] Regular FOLLOW UP/APPOINTMENTS Follow-up Plan DC TO [facility] F/U IN 2WEEKS GE PATE NP November 22, 2018 11:30
[2018-11-22] MEDS ORDERED: OXYC-481 PO (11:31)
[2018-11-22] MEDS ORDERED: ENOX40DI2 SC (11:31)
[2018-11-22] MEDS ORDERED: ACET325T33 PO (11:31)
[2018-11-22] MEDS ORDERED: ONDA4VIA6 IV (11:31)
--- NOTE | 2018-11-22 12:56 | DS ---
Date/Time of Note Date/Time of Note DATE: 11/22/18 TIME: 12:54 Discharge Summary Admission/Discharge Info Admit Date/Time November 19, 2018 at 22:26 Discharge Date/Time Discharge Diagnosis 1. Acute left displaced intertrochanteric hip fracture -S/p Intramedullary nail of left intertrochanteric hip fracture 12/2018 2. Chronic anemia. Patient Condition: Stable Consults ,ortho Procedures 11/20/2018. Pelvic x-ray. IMPRESSION: Minimally displaced left femoral intertrochanteric fracture. 11/21/2018. Operation/Procedure Performed Intramedullary nail of left intertrochanteric hip fracture 11/20/2018. Echocardiogram Conclusions: Normal left ventricular systolic function. Normal left ventricular cavity size. Sigmoid septum. Ejection fraction is visually estimated at 55 %. Tissue Doppler/Mitral Doppler indices are consistent with impaired relaxation (Stage I diastolic dysfunction). Mild mitral leaflet calcification. Mild mitral annular calcification. Mild mitral valve regurgitation. No hemodynamically significant aortic stenosis by doppler. Aortic cusps appear mildly calcified. Moderate aortic valve regurgitation. Normal appearance of the tricuspid valve. Estimated peak PA systolic pressure 44 mmHg. There is moderate tricuspid regurgitation. Normal size and no respiratory collapse consistent with elevated right atrial pressure. Ascending aorta is dilated. Ascending Aorta 3.80 cm. Electronically Signed By: Timo Joel 2018-11-20 15:27:49 PDT Hospital Course 83 yo charming f surprisingly w/no pmh admitted with mechanical fall/left displaced intertrochanteric hip fracture... Patient underwent Intramedullary nail of left intertrochanteric hip fracture 11/20/2018. Postoperative course was uneventful. Patient was continued on DVT prophylaxis and adequate pain control. H&H remained stable although patient does have some chronic anemia. Patient was evaluated by physical therapy and recommended acute rehabilitation unit for further inpatient rehab when she was accepted. Approximately 60 m spent on coordinating the discharge on this patient. Patient was seen in collaboration with Dr. Jimenez Follow-up Plan DC TO [facility] F/U IN 2WEEKS Primary Care Provider Not On Staff Doctor GE PATE NP November 22, 2018 12:56
[2018-11-22 13:11] VITALS: BP 128/65; PULSE 91; RESP 18
--- NOTE | 2018-11-22 16:52 | PN ---
Date/Time of Note Date/Time of Note DATE: 11/22/18 TIME: 16:52 Assessment/Plan Lines/Catheters IV Catheter Type (from Nrsg): Saline Lock Elena in Place (from Nrsg): No Assessment/Plan Chief Complaint/Hosp Course 83-year-old female POD#2 s/p IM nail left IT fracture. Okay to DC from orthopedic standpoint -Post op H&H stable -PT/OT. -Joints pain control protocol -DVT prophylaxis: SCD's, Lovenox 40 mg daily x6 weeks -Weight bearing status: as tolerated -Abx: 24h ancef -Diet: ADAT -Elena: DC -Patient accepted to acute rehab unit Follow-up with me in clinic in 2 weeks Subjective 24 Hr Interval Summary Patient doing well No acute events overnight Pain is well controlled Exam/Review of Systems Vital Signs Vitals Vital Signs Date Temp Pulse Resp B/P (MAP) Pulse Ox O2 O2 Flow FiO2 Time Delivery Rate 11/22/18 98.2 91 18 128/65 94 13:11 (86) 11/22/18 2.0 06:57 11/21/18 Nasal 07:52 Cannula Intake and Output 11/21/18 11/21/18 11/22/18 1515:00 23:00 07:00 IntakeIntake Total 250 ml 1260 ml OutputOutput Total 450 ml 300 ml BalanceBalance 250 ml 810 ml -300 ml Exam Free Text/Dictation Left lower extremity: Dressing: clean, dry, and intact, no erythema Sensation intact to light touch in a sural, saphenous, deep peroneal, superficial peroneal, medial and lateral plantar nerve distribution. Motor is intact, patient able to dorsiflex and plantarflex ankle and extend and flex great toe. Dorsalis Pedis pulse +2, Brisk capillary refill. Compartments are soft. Calves non-tender to palpation bilaterally. Results Result Diagram: 11/21/18 0506 11/21/18 0506 SHAHNAZ PEPPER MD November 22, 2018 16:52
[2018-11-22] MEDS ORDERED: SENNA/DOCUSATE NA (8.6MG/50MG) TAB PO PRN (17:30)
[2018-11-22] MEDS ORDERED: DOCUSATE SODIUM 100 MG CAP PO ONE (17:30)
[2018-11-22] MEDS ORDERED: BISACODYL 10 MG SUPP PR PRN (17:30)
[2018-11-22] MEDS ORDERED: NA PHOSPHATE/BIPHOS 133 ML ENEMA PR PRN (17:30)
[2018-11-22] MEDS ORDERED: MAGNESIUM HYDROXIDE 30ML CUP PO PRN (17:30)
[2018-11-23] MEDS ORDERED: DOCUSATE SODIUM 100 MG CAP PO SCH (09:00)
== END 2018-11-22 17:35 | DRG 482 ==
LOC: E/R 21:10 → MS1 22:26 → EDBEDREQSVC 22:37
PROVIDERS: ADMIT Internal Medicine; ATTEND Internal Medicine
PROC: 0QS706Z Reposition Left Upper Femur with Intramedullary Internal Fixation Device, Open Approach (ICD-10-PCS; principal; 2018-11-21)
DX: S72.142A Displaced intertrochanteric fracture of left femur, initial encounter for closed fracture (principal); D64.9 Anemia, unspecified; Z87.891 Personal history of nicotine dependence; W01.0XXA Fall on same level from slipping, tripping and stumbling without subsequent striking against object, initial encounter; Y92.000 Kitchen of unspecified non-institutional (private) residence as the place of occurrence of the external cause
CPT/HCPCS: 36415; 71045; 72170; 73510; 73530; 73550; 80048; 80053; 83735; 84100; 84484; 85025; 85610; 85730; 93005; 93306; 96374; 96375; 97116; 97162; 97530; C1713; J0690; J1100; J1170; J1650; J2250; J2270; J2405; J2710; J2795; J3010; J7042

== ENCOUNTER 2018-11-22 18:00 | Inpatient (IN) | payer MEDICARE, OTHER ==
[~2018-11-22] VITALS: Ht 142.2 cm; Wt 52.0 kg
[~2018-11-22 18:00] MED LIST: ACET325T33 PO; ENOX40DI2 SC; ONDA4VIA6 IV; OXYC-481 PO
[2018-11-22 18:10] VITALS: BP 131/59; PULSE 100; RESP 18
[2018-11-22] MEDS ORDERED: PENDING SANTYL ORDER FOR WOUND CARE XX PRN (19:00)
[2018-11-22] MEDS ORDERED: ONDANSETRON (ODT) 4 MG TAB ODT PRN (19:00)
[2018-11-22] MEDS ORDERED: oxyCODONE 5 MG TAB PO PRN (19:00)
[2018-11-22] MEDS ORDERED: MAGNESIUM HYDROXIDE 30ML CUP PO PRN (19:30)
[2018-11-22] MEDS ORDERED: BISACODYL 10 MG SUPP PR PRN (19:30)
[2018-11-22] MEDS ORDERED: LACTULOSE 30ML CUP PO PRN (19:30)
[2018-11-22 19:49] VITALS: BP 152/70; PULSE 94; RESP 18
[2018-11-22 20:00] VITALS: Ht 142.2 cm; Wt 52.0 kg
[2018-11-22] MEDS: ACETAMINOPHEN 325 MG TAB PO PRN (21:27)
[2018-11-22] MEDS: DOCUSATE SODIUM 100 MG CAP PO SCH (21:27)
[2018-11-23 02:00] VITALS: BP 140/65; PULSE 98; RESP 18
[2018-11-23 07:00] VITALS: BP 142/64; PULSE 96; RESP 18
[2018-11-23] MEDS: ACETAMINOPHEN 325 MG TAB PO PRN (10:37)
[2018-11-23] MEDS: DOCUSATE SODIUM 100 MG CAP PO SCH ×2 (10:39→20:34)
[2018-11-23] MEDS: ENOXAPARIN 40 MG/0.4 ML SYG SC SCH (10:45)
[2018-11-23] MEDS: SENNA TAB PO SCH (10:46)
--- NOTE | 2018-11-23 11:30 | HP ---
Date/Time of Note Date/Time of Note DATE: 11/23/18 TIME: 11:29 Assessment/Plan VTE Prophylaxis Risk score (from Ns)>0 risk: 12 SCD applied (from Ns): Yes Pharmacological prophylaxis: LMWH Lines/Catheters IV [facility] Saline Lock Assessment/Plan Hospital Course SUBJECTIVE: No acute distress. OBJECTIVE: Vital signs-see below PHYSICAL EXAM: Constitutional: charming elderly female,not in acute distress. HEENT: Head atraumatic and normocephalic. Eyes: Extraocular muscles intact. Anicteric sclerae. Pupils equal bilaterally, reactive to light. NECK: Supple without lymph node. CHEST: Clear and good breath sounds equally. No wheezing. No rhonchi. HEART: S1, S2. Regular rate and rhythm. ABDOMEN: Soft/non tender with no rebound tenderness. Bowel sounds were present. EXTREMITIES: L Hip w/ intact dressing. No cyanosis, clubbing or edema. NEUROLOGIC: Alert and oriented x3. No focal deficit. No sensory deficit. PSYCHOSOCIAL: No signs of depression. INTEGUMENTARY: No open wounds. ASSESSMENT AND PLAN:83 yo f w/no pmh underwent IM nail of left hip secondary to left displaced intertrochanteric hip fracture, transferred for rehab. 1. Acute left displaced intertrochanteric hip fracture -S/p Intramedullary nail of left intertrochanteric hip fracture 12/2018 -dvt ppx, pain control.. -PT/rehab 2. Chronic anemia. -Stable H&H. -Add iron panel to am labs and treat accordingly. DVT prophylaxis: Lovenox Patient is medically stable for starting physical therapy and acute rehabilitation unit. Patient was seen in collaboration with Dr. Swanson Result Diagram: 11/23/18 0746 11/23/18 0746 Results 24hrs Laboratory Tests Test 11/23/18 04:30 11/23/18 07:46 Urine Color YELLOW Urine Clarity CLEAR Urine pH 8.0 Urine Specific [place] 1.014 Urine Ketones NEGATIVE Urine Nitrite NEGATIVE Urine Bilirubin NEGATIVE Urine Urobilinogen NEGATIVE Urine Leukocyte Esterase NEGATIVE Urine Hemoglobin NEGATIVE Urine Glucose NEGATIVE Urine Total Protein NEGATIVE White Blood Count 7.8 Red Blood Count 3.36 L Hemoglobin 9.7 L Hematocrit 30.1 L Mean Corpuscular Volume 89.6 Mean Corpuscular Hemoglobin 28.9 L Mean Corpuscular Hemoglobin Concent 32.2 Red Cell Distribution Width 13.8 Platelet Count 269 Mean Platelet Volume 9.7 Immature Granulocytes % 0.300 Neutrophils % 73.3 Lymphocytes % 17.8 Monocytes % 7.7 Eosinophils % 0.5 Basophils % 0.4 Nucleated Red Blood Cells % 0.0 Immature Granulocytes # 0.020 Neutrophils # 5.8 Lymphocytes # 1.4 Monocytes # 0.6 Eosinophils # 0.0 Basophils # 0.0 Nucleated Red Blood Cells # 0.0 Sodium Level 142 Potassium Level 3.6 Chloride Level 106 Carbon Dioxide Level 33 H Anion Gap 3 L Blood Urea Nitrogen 9 Creatinine 0.54 Est Glomerular Filtrat Rate mL/min Glucose Level 92 Calcium Level 8.9 Total Bilirubin 0.3 Direct Bilirubin 0.00 Indirect Bilirubin 0.3 Aspartate Amino Transf (AST/SGOT) 21 Alanine Aminotransferase (ALT/SGPT) 17 Alkaline Phosphatase 49 Total Protein 6.2 Albumin 3.2 L Globulin 3.00 Albumin/Globulin Ratio 1.06 HPI/ROS Admit Date/Time Admit Date/Time November 22, 2018 at 18:00 Hx of Present Illness 83 yo charming f surprisingly w/no pmh admitted at [facility] on 11/16/18 with mechanical fall/left displaced intertrochanteric hip fracture... Patient underwent Intramedullary nail of left intertrochanteric hip fracture 11/20/2018. Postoperative course was uneventful. Patient was continued on DVT prophylaxis and adequate pain control. H&H remained stable although patient does have some chronic anemia. Patient was evaluated by physical therapy and recommended acute rehabilitation unit for further inpatient rehab.Pt accepted to ARU on 11/22/18. Patient with no chest pain, palpitation, nausea, vomiting, abdominal pain, loss of consciousness, dizziness, headache, numbness, tingling, fever, chills or other constitutional symptoms. Labs and vital signs at baseline. ROS A 12 point review of system was assessed and is negative other than what is mentioned in the HPI PMH/Family/Social Past Medical History See HPI Medications Current Medications [facility]isc[facility] This patient funk... PRN PRN XX WOUND CARE; Start 11/22/18 at 19:00 Acetaminophen (Tylenol Tab) 650 mg Q6H PRN PO MILD PAIN(1-3)OR ELEVATED TEMP Last administered on 11/23/18at 10:37; Admin Dose 650 MG; Start 11/22/18 at 19:00 Enoxaparin Sodium (Lovenox) 40 mg DAILY SC Last administered on 11/23/18at 10:45; Admin Dose 40 MG; Start 11/23/18 at 09:00 Ondansetron HCl (Zofran Odt) 4 mg Q6H PRN ODT NAUSEA; Start 11/22/18 at 19:00 Oxycodone HCl (Roxicodone) 5 mg Q4H PRN PO MODERATE PAIN LEVEL 4-6; Start 11/22/18 at 19:00 Docusate Sodium (Colace) 100 mg BID PO Last administered on 11/23/18at 10:39; Admin Dose 100 MG; Start 11/22/18 at 21:00 Senna (Senokot) 1 tab DAILY PO Last administered on 11/23/18at 10:46; Admin Dose 1 TAB; Start 11/23/18 at 09:00 Lactulose (Enulose) 10 gm DAILY PRN PO CONSTIPATION; Start 11/22/18 at 19:30 Magnesium Hydroxide (Milk Of Mag) 30 ml DAILY PRN PO CONSTIPATION; Start 11/22/18 at 19:30 Bisacodyl (Dulcolax Supp) 10 mg DAILY PRN [place] CONSTIPATION; Start 11/22/18 at 19:30 Coded Allergies: No Known Allergy (Unverified , 11/19/18) Past Surgical History See HPI Past Surgical Hx: other Family History Significant Family History: no pertinent family hx Social History Denied history of alcohol, smoking, illicit drug use Smoking Status: Never smoker Exam/Review of Systems Vital Signs Vitals Vital Signs Date Temp Pulse Resp B/P (MAP) Pulse Ox O2 O2 Flow FiO2 Time Delivery Rate 11/23/18 97.4 96 18 142/64 98 Room Air 07:00 (90) Intake and Output 11/22/18 11/22/18 11/23/18 1515:00 23:00 07:00 IntakeIntake Total 550 ml BalanceBalance 550 ml GE PATE NP November 23, 2018 11:30
[2018-11-23 14:00] VITALS: BP 151/65; PULSE 89; RESP 18
[2018-11-23 15:00] VITALS: BP 135/60; PULSE 78
--- NOTE | 2018-11-23 15:36 | CONS ---
DATE OF ADMISSION: 11/22/2018 DATE OF CONSULTATION: 11/23/2018 TYPE OF CONSULTATION: Rehabilitation post-admission physician evaluation. REHABILITATION IMPAIRMENT CATEGORY: Left intertrochanteric hip fracture status post intramedullary n ailing. ACTIVE COMORBIDITIES: 1. Acute pain syndrome. 2. Anemia. 3. Constipation. 4. Atherosclerotic heart disease. 5. Impairments in self-care and mobility. HISTORY OF PRESENT ILLNESS: The patient is a pleasant 83-year-old female who is status post a mechan ical fall with resultant left intertrochanteric hip fracture. The patient did undergo intramedullary nailing. Her postoperative course has been significant for anemia, acute pain syndrome and constipa tion. The patient has been cleared to transfer to the rehabilitation unit for comprehensive interdis ciplinary rehab care. FUNCTIONAL HISTORY: Prior to recent events, the patient was independent in self-care tasks and mobil ity. Currently, the patient requires moderate to maximal assist for self-care and mobility tasks. I have reviewed the preadmission screen and patient's current functional status is consistent with [facility] preadmission screen. PAST MEDICAL HISTORY: Atherosclerotic heart disease. CURRENT MEDICATIONS: 1. Tylenol p.r.n. 2. Lovenox 40 mg subcutaneous daily. 3. Zofran p.r.n. 4. Roxicodone p.r.n. ALLERGIES: THE PATIENT WITH NO KNOWN DRUG ALLERGIES. FAMILY AND SOCIAL HISTORY: The patient lives with family at home with family in a single [place] home and hopes to return there upon discharge. PHYSICAL EXAMINATION: VITAL SIGNS: She is currently afebrile with stable vital signs. HEENT: Extraocular motions are intact. Oropharynx is clear. NECK: Supple. LUNGS: Clear anteriorly. CARDIAC: S1, S2. ABDOMEN: Soft, nontender, positive bowel sounds. NEUROLOGIC: She is awake and alert and oriented x3. She can follow simple 1-step commands. She dem onstrates antigravity strength in bilateral upper extremity and the right lower extremity. Dorsiflex ion and plantar flexion are intact on the left. PLAN: The patient has been admitted for comprehensive interdisciplinary acute rehab and is anticipat ed to tolerate 3 hours of daily therapy in divided doses for at least 5/7 days a week. Treatment whitley n will include: 1. Physical therapy to focus on bed mobility, transfers and household ambulation with the goal of funk ving patient reach a standby assist level. 2. Occupational therapy to focus on hygiene, grooming, dressing, bathing and toileting activities wi th goal of having patient reach standby assist level. 3. Rehabilitation nursing for carryover of therapeutic interventions, the goal of continent of bowel and bladder and the goal of pain adequately managed on oral medications. ESTIMATED LENGTH OF STAY: 10 days. DISPOSITION GOAL: Home with family. REHABILITATION BARRIER: Pain. INTERVENTION FOR BARRIER: Interdisciplinary approach. As a board certified park services specialist in physical medicine rehabilitation, I attest this pat ient qualifies for an interdisciplinary acute rehabilitation unit stay and is best managed at this [facility] of care. After a thorough review of the patient's medical records and a full physical examinatio n, I believe that this patient does meet criteria for acute rehabilitation unit stay and is anticipat ed to make reasonable goals in a reasonable period of time as outlined above. Dictated By: CLEMENTINE SANCHEZ MD LY/NTS Conf#: [id number] DID#: [id number] CC: MILI ALMAGUER MD;*EndCC*
[2018-11-23 20:33] VITALS: BP 137/64; PULSE 101; RESP 18
[2018-11-24 02:48] VITALS: BP 150/66; PULSE 89; RESP 17
--- NOTE | 2018-11-24 06:28 | PN ---
Date/Time of Note Date/Time of Note DATE: 11/24/18 TIME: 06:28 Subjective In good spirits Objective Vital Signs Date Temp Pulse Resp B/P (MAP) Pulse Ox O2 O2 Flow FiO2 Time Delivery Rate 11/24/18 98.5 89 17 150/66 97 Room Air 02:48 (94) Intake and Output 11/23/18 11/23/18 11/24/18 1515:00 23:00 07:00 IntakeIntake Total 1100 ml OutputOutput Total 600 ml BalanceBalance 500 ml Exam pulm-cta min transfer min amb Results/Medications Result Diagram: 11/23/1846 11/23/1846 Results 24 hrs Laboratory Tests Test 11/23/18 07:46 White Blood Count 7.8 Red Blood Count 3.36 L Hemoglobin 9.7 L Hematocrit 30.1 L Mean Corpuscular Volume 89.6 Mean Corpuscular Hemoglobin 28.9 L Mean Corpuscular Hemoglobin Concent 32.2 Red Cell Distribution Width 13.8 Platelet Count 269 Mean Platelet Volume 9.7 Immature Granulocytes % 0.300 Neutrophils % 73.3 Lymphocytes % 17.8 Monocytes % 7.7 Eosinophils % 0.5 Basophils % 0.4 Nucleated Red Blood Cells % 0.0 Immature Granulocytes # 0.020 Neutrophils # 5.8 Lymphocytes # 1.4 Monocytes # 0.6 Eosinophils # 0.0 Basophils # 0.0 Nucleated Red Blood Cells # 0.0 Sodium Level 142 Potassium Level 3.6 Chloride Level 106 Carbon Dioxide Level 33 H Anion Gap 3 L Blood Urea Nitrogen 9 Creatinine 0.54 Est Glomerular Filtrat Rate mL/min Glucose Level 92 Calcium Level 8.9 Iron Level 12 L Total Iron Binding Capacity 203 L Percent Iron Saturation 6 L Ferritin 175.0 Total Bilirubin 0.3 Direct Bilirubin 0.00 Indirect Bilirubin 0.3 Aspartate Amino Transf (AST/SGOT) 21 Alanine Aminotransferase (ALT/SGPT) 17 Alkaline Phosphatase 49 Total Protein 6.2 Albumin 3.2 L Globulin 3.00 Albumin/Globulin Ratio 1.06 Medications Current Medications Miscellaneous Information (Pending [facility] Order For Wound Care) This patient funk... PRN PRN XX WOUND CARE; Start 11/22/18 at 19:00 Acetaminophen (Tylenol Tab) 650 mg Q6H PRN PO MILD PAIN(1-3)OR ELEVATED TEMP Last administered on 11/23/18at 10:37; Admin Dose 650 MG; Start 11/22/18 at 19:00 Enoxaparin Sodium (Lovenox) 40 mg DAILY SC Last administered on 11/23/18at 10:45; Admin Dose 40 MG; Start 11/23/18 at 09:00 Ondansetron HCl (Zofran Odt) 4 mg Q6H PRN ODT NAUSEA; Start 11/22/18 at 19:00 Oxycodone HCl (Roxicodone) 5 mg Q4H PRN PO MODERATE PAIN LEVEL 4-6; Start 11/22/18 at 19:00 Docusate Sodium (Colace) 100 mg BID PO Last administered on 11/23/18at 20:34; Admin Dose 100 MG; Start 11/22/18 at 21:00 Senna (Senokot) 1 tab DAILY PO Last administered on 11/23/18at 10:46; Admin Dose 1 TAB; Start 11/23/18 at 09:00 Lactulose (Enulose) 10 gm DAILY PRN PO CONSTIPATION; Start 11/22/18 at 19:30 Magnesium Hydroxide (Milk Of Mag) 30 ml DAILY PRN PO CONSTIPATION; Start 11/22/18 at 19:30 Bisacodyl (Dulcolax Supp) 10 mg DAILY PRN [place] CONSTIPATION; Start 11/22/18 at 19:30 Assessment/Plan Additional Assessment/Plan Rehab- Left intertrochanteric hip fracture status post intramedullary nailing. Progressing with rehab program Acute pain syndrome- continue current meds Anemia. Constipation-bowel program Atherosclerotic heart disease. CLEMENTINE SANCEHZ MD November 24, 2018 06:28
[2018-11-24 07:30] VITALS: BP 138/61; PULSE 88; RESP 18
[2018-11-24] MEDS: ACETAMINOPHEN 325 MG TAB PO PRN (10:08)
[2018-11-24] MEDS: SENNA TAB PO SCH (10:08)
[2018-11-24] MEDS: DOCUSATE SODIUM 100 MG CAP PO SCH ×2 (10:08→21:11)
[2018-11-24] MEDS: ENOXAPARIN 40 MG/0.4 ML SYG SC SCH (10:09)
--- NOTE | 2018-11-24 11:56 | PN ---
Date/Time of Note Date/Time of Note DATE: 11/24/18 TIME: 11:53 Assessment/Plan VTE Prophylaxis Risk score (from Ns)>0 risk: 19 SCD applied (from [facility] [place], [place]): Yes Pharmacological prophylaxis: LMWH Lines/Catheters IV Catheter Type (from [facility]): Saline Lock Assessment/Plan Hospital Course SUBJECTIVE: No acute distress. OBJECTIVE: Vital signs-see below PHYSICAL EXAM: Constitutional: charming elderly female,not in acute distress. HEENT: Head atraumatic and normocephalic. Eyes: Extraocular muscles intact. Anicteric sclerae. Pupils equal bilaterally, reactive to light. NECK: Supple without lymph node. CHEST: Clear and good breath sounds equally. No wheezing. No rhonchi. HEART: S1, S2. Regular rate and rhythm. ABDOMEN: Soft/non tender with no rebound tenderness. Bowel sounds were present. EXTREMITIES: L Hip w/ intact dressing. No cyanosis, clubbing or edema. NEUROLOGIC: Alert and oriented x3. No focal deficit. No sensory deficit. PSYCHOSOCIAL: No signs of depression. INTEGUMENTARY: No open wounds. ASSESSMENT AND PLAN:83 yo f w/no pmh underwent IM nail of left hip secondary to left displaced intertrochanteric hip fracture, transferred for rehab. 1. Acute left displaced intertrochanteric hip fracture -S/p Intramedullary nail of left intertrochanteric hip fracture 12/2018 -dvt ppx, pain control.. -PT/rehab 2. Chronic anemia. -Stable H&H. -low dose oral iron 3. Possible UTI Culture growing GNR-start ceftriaxone empirically and f/u final cs [facility] with Result Diagram: 11/23/18 0746 11/23/18 0746 Exam/Review of Systems Exam Vitals Vital Signs Date Temp Pulse Resp B/P (MAP) Pulse Ox O2 O2 Flow FiO2 Time Delivery Rate 11/24/18 98.5 88 18 138/61 95 Room Air 07:30 (86) Intake and Output 11/23/18 11/23/18 11/24/18 1515:00 23:00 07:00 IntakeIntake Total 1100 ml OutputOutput Total 600 ml BalanceBalance 500 ml Medications Medication Current Medications Miscellaneous Information (Pending [facility] Order For Wound Care) This patient funk... PRN PRN XX WOUND CARE; Start 11/22/18 at 19:00 Acetaminophen (Tylenol Tab) 650 mg Q6H PRN PO MILD PAIN(1-3)OR ELEVATED TEMP Last administered on 11/24/18 10:08; Admin Dose 650 MG; Start 11/22/18 at 19:00 Enoxaparin Sodium (Lovenox) 40 mg DAILY SC Last administered on 11/24/18 10:09; Admin Dose 40 MG; Start 11/23/18 at 09:00 Ondansetron HCl (Zofran Odt) 4 mg Q6H PRN ODT NAUSEA; Start 11/22/18 at 19:00 Oxycodone HCl (Roxicodone) 5 mg Q4H PRN PO MODERATE PAIN LEVEL 4-6; Start 11/22/18 at 19:00 Docusate Sodium (Colace) 100 mg BID PO Last administered on 11/24/18 10:08; Admin Dose 100 MG; Start 11/22/18 at 21:00 Senna (Senokot) 1 tab DAILY PO Last administered on 11/24/18 10:08; Admin Dose 1 TAB; Start 11/23/18 at 09:00 Lactulose (Enulose) 10 gm DAILY PRN PO CONSTIPATION; Start 11/22/18 at 19:30 Magnesium Hydroxide (Milk Of Mag) 30 ml DAILY PRN PO CONSTIPATION; Start 11/22/18 at 19:30 Bisacodyl (Dulcolax Supp) 10 mg DAILY PRN [place] CONSTIPATION; Start 11/22/18 at 19:30 EG PATE NP November 24, 2018 11:56
[2018-11-24] MEDS: CEFTRIAXONE 1 GM/50 ML (PMX) 50 ML IVPB SCH (13:45)
[2018-11-24 14:00] VITALS: BP 120/55; PULSE 91; RESP 18
[2018-11-24] MEDS: FERROUS SULFATE (EC) 325 MG TAB PO SCH (15:03)
[2018-11-24 20:00] VITALS: BP 170/77; PULSE 96; RESP 18
[2018-11-24 20:25] VITALS: BP 168/77; PULSE 96
[2018-11-24] MEDS: ZOLPIDEM 5 MG TAB PO PRN (21:11)
[2018-11-25 02:00] VITALS: BP 131/64; PULSE 92; RESP 18
[2018-11-25 07:00] VITALS: BP 150/68; PULSE 95; RESP 17
--- NOTE | 2018-11-25 08:05 | PN ---
Date/Time of Note Date/Time of Note DATE: 11/25/18 TIME: 08:03 Subjective AWAKE ALERT MILD PAIN Objective Vital Signs Date Temp Pulse Resp B/P (MAP) Pulse Ox O2 O2 Flow FiO2 Time Delivery Rate 11/25/18 98.2 92 18 131/64 96 Room Air 02:00 (86) Intake and Output 11/24/18 11/24/18 11/25/18 1515:00 23:00 07:00 IntakeIntake Total 50 ml 1150 ml 750 ml OutputOutput Total 200 ml BalanceBalance -150 ml 1150 ml 750 ml Exam LUNGS CTA COR RRR TRACE EDEMA - HOMANS CLOF XT AND GAIT MOD/MAXA Results/Medications Result Diagram: 11/23/1846 11/23/18745 Medications Current Medications Miscellaneous Information (Pending [facility] Order For Wound Care) This patient funk... PRN PRN XX WOUND CARE; Start 11/22/18 at 19:00 Acetaminophen (Tylenol Tab) 650 mg Q6H PRN PO MILD PAIN(1-3)OR ELEVATED TEMP Last administered on 11/24/18at 10:08; Admin Dose 650 MG; Start 11/22/18 at 19:00 Enoxaparin Sodium (Lovenox) 40 mg DAILY SC Last administered on 11/24/18 10:09; Admin Dose 40 MG; Start 11/23/18 at 09:00 Ondansetron HCl (Zofran Odt) 4 mg Q6H PRN ODT NAUSEA; Start 11/22/18 at 19:00 Oxycodone HCl (Roxicodone) 5 mg Q4H PRN PO MODERATE PAIN LEVEL 4-6; Start 11/22/18 at 19:00 Docusate Sodium (Colace) 100 mg BID PO Last administered on 11/24/18 21:11; Admin Dose 100 MG; Start 11/22/18 at 21:00 Senna (Senokot) 1 tab DAILY PO Last administered on 11/24/18 10:08; Admin Dose 1 TAB; Start 11/23/18 at 09:00 Lactulose (Enulose) 10 gm DAILY PRN PO CONSTIPATION; Start 11/22/18 at 19:30 Magnesium Hydroxide (Milk Of Mag) 30 ml DAILY PRN PO CONSTIPATION Last administered on 11/24/18at 16:14; Admin Dose 30 ML; Start 11/22/18 at 19:30 Bisacodyl (Dulcolax Supp) [address] [place] CONSTIPATION; Start 11/22/18 at 19:30 Ferrous Sulfate (Ferrous Sulfate (Ec)) 325 mg DAILY PO Last administered on 11/24/18at 15:03; Admin Dose 325 MG; Start 11/24/18 at 12:00 Ceftriaxone Sodium 50 ml @ 100 mls/hr Q24H IVPB Last administered on 11/24/18at 13:45; Admin Dose 100 MLS/HR; Start 11/24/18 at 13:00 Zolpidem Tartrate (Ambien) 5 mg HS MAY REPEAT X 1 PRN PO INSOMNIA Last administered on 11/24/18at 21:11; Admin Dose 5 MG; Start 11/24/18 at 21:00 Assessment/Plan Additional Assessment/Plan 1. L HIP FXR NAILING Acute pain syndrome. CONT REHAB LOVENOX 2. Anemia. 3. Constipation. 4. Atherosclerotic heart disease.CARDIAC PRECAUTIOONS TRACK BPS AND HR WITH OOB INTERVENTIONS 5. Impairments in self-care and mobility. FABBY SANCHEZ MD November 25, 2018 08:05
[2018-11-25] MEDS: SENNA TAB PO SCH (09:59)
[2018-11-25] MEDS: FERROUS SULFATE (EC) 325 MG TAB PO SCH (09:59)
[2018-11-25] MEDS: DOCUSATE SODIUM 100 MG CAP PO SCH ×2 (09:59→20:42)
[2018-11-25] MEDS: ENOXAPARIN 40 MG/0.4 ML SYG SC SCH (10:02)
--- NOTE | 2018-11-25 10:47 | PN ---
Date/Time of Note Date/Time of Note DATE: 11/25/18 TIME: 10:45 Assessment/Plan VTE Prophylaxis Risk score (from Ns)>0 risk: 10 SCD applied (from Ns): Yes Pharmacological prophylaxis: heparin Lines/Catheters IV Catheter Type (from [facility]): Saline Lock Assessment/Plan Problems: (1) History of repair of hip fracture Onset Date: ~ 11/21/2018 Status: Acute Comment: Regressing with the acute rehabilitation protocol and doing well. Anticipate good rehab potential (2) Grade I diastolic dysfunction Comment: Control blood pressure (3) Iron deficiency anemia Status: Chronic Comment: Continue with iron replacement therapy Qualifiers: Iron deficiency anemia type: chronic blood loss Qualified Codes: D50.0 - Iron deficiency anemia secondary to blood loss (chronic) (4) UTI due to extended-spectrum beta lactamase (ESBL) producing Escherichia coli Status: Acute Comment: The patient had negative urinalysis and was possibly asymptomatic. Regardless with this particular bacteria we will go ahead and treat (5) History of smoking 30 or more pack years Status: Chronic Comment: Counseled on cessation to the best ability with language barrier Result Diagram: 11/23/18 0746 11/23/18 0746 Subjective 24 Hr Interval Summary Free Text/Dictation Charming woman who is quite actively involved with the rehab process Constitutional: no complaints Respiratory: no complaints Gastrointestinal: no complaints Exam/Review of Systems Exam Vitals Vital Signs Date Temp Pulse Resp B/P (MAP) Pulse Ox O2 O2 Flow FiO2 Time Delivery Rate 11/25/18 98.2 95 17 150/68 99 Room Air 07:00 (95) Intake and Output 11/24/18 11/24/18 11/25/18 1515:00 23:00 07:00 IntakeIntake Total 50 ml 1150 ml 750 ml OutputOutput Total 200 ml BalanceBalance -150 ml 1150 ml 750 ml Constitutional: alert, oriented Neck: supple, non-tender Respiratory: clear to auscultation, normal air movement Cardiovascular: regular rate and rhythm, nl pulses Medications Medication Current Medications Miscellaneous Information (Pending [facility] Order For Wound Care) This patient funk... PRN PRN XX WOUND CARE; Start 11/22/18 at 19:00 Acetaminophen (Tylenol Tab) 650 mg Q6H PRN PO MILD PAIN(1-3)OR ELEVATED TEMP Last administered on 11/24/18 10:08; Admin Dose 650 MG; Start 11/22/18 at 19:00 Enoxaparin Sodium (Lovenox) 40 mg DAILY SC Last administered on 11/25/18 10:02; Admin Dose 40 MG; Start 11/23/18 at 09:00 Ondansetron HCl (Zofran Odt) 4 mg Q6H PRN ODT NAUSEA; Start 11/22/18 at 19:00 Oxycodone HCl (Roxicodone) 5 mg Q4H PRN PO MODERATE PAIN LEVEL 4-6; Start 11/22/18 at 19:00 Docusate Sodium (Colace) 100 mg BID PO Last administered on 11/25/18 09:59; Admin Dose 100 MG; Start 11/22/18 at 21:00 Senna (Senokot) 1 tab DAILY PO Last administered on 11/25/18 09:59; Admin Dose 1 TAB; Start 11/23/18 at 09:00 Lactulose (Enulose) 10 gm DAILY PRN PO CONSTIPATION; Start 11/22/18 at 19:30 Magnesium Hydroxide (Milk Of Mag) 30 ml DAILY PRN PO CONSTIPATION Last administered on 11/24/18 16:14; Admin Dose 30 ML; Start 11/22/18 at 19:30 Bisacodyl (Dulcolax Supp) 10 mg DAILY PRN [place] CONSTIPATION; Start 11/22/18 at 19:30 Ferrous Sulfate (Ferrous Sulfate (Ec)) 325 mg DAILY PO Last administered on 11/25/18 09:59; Admin Dose 325 MG; Start 11/24/18 at 12:00 Ceftriaxone Sodium 50 ml @ 100 mls/hr Q24H IVPB Last administered on 11/24/18 13:45; Admin Dose 100 MLS/HR; Start 11/24/18 at 13:00 Zolpidem Tartrate (Ambien) 5 mg HS MAY REPEAT X 1 PRN PO INSOMNIA Last administered on 11/24/18 21:11; Admin Dose 5 MG; Start 11/24/18 at 21:00 Levofloxacin (Levaquin) 500 mg ONCE ONCE PO ; Start 11/25/18 at 11:00; Stop 11/25/18 at 11:01 Levofloxacin (Levaquin) 250 mg DAILY@06 PO ; Start 11/26/18 at 06:00 IMAN SCHMIDT MD November 25, 2018 10:47
[2018-11-25] MEDS ORDERED: LEVOFLOXACIN 500 MG TAB PO ONE (11:00)
[2018-11-25] MEDS: CEFTRIAXONE 1 GM/50 ML (PMX) 50 ML IVPB SCH (12:33)
[2018-11-25 14:00] VITALS: BP 121/55; PULSE 100; RESP 17
[2018-11-25 20:03] VITALS: BP 133/63; PULSE 95; RESP 18
[2018-11-25] MEDS: ACETAMINOPHEN 325 MG TAB PO PRN (20:41)
[2018-11-25] MEDS: ZOLPIDEM 5 MG TAB PO PRN (20:42)
[2018-11-26 01:56] VITALS: BP 138/68; RESP 18
[2018-11-26] MEDS ORDERED: LEVOFLOXACIN 500 MG TAB PO SCH (06:00)
[2018-11-26] MEDS: LEVOFLOXACIN 250 MG TAB PO SCH (06:06)
[2018-11-26 07:00] VITALS: BP 129/58; PULSE 89; RESP 18
[2018-11-26] MEDS: FERROUS SULFATE (EC) 325 MG TAB PO SCH (08:49)
[2018-11-26] MEDS: DOCUSATE SODIUM 100 MG CAP PO SCH ×2 (08:49→20:43)
[2018-11-26] MEDS: ENOXAPARIN 40 MG/0.4 ML SYG SC SCH (08:53)
[2018-11-26] MEDS: SENNA TAB PO SCH (08:58)
--- NOTE | 2018-11-26 10:24 | PN ---
Date/Time of Note Date/Time of Note DATE: 11/26/18 TIME: 10:22 Assessment/Plan VTE Pro[place]axis [place] [facility] [place] risk: 10 [place]CD [place] [facility] Yes SCD contraindicated: low risk/ambulating Pharmacological prophylaxis: heparin Pharm contraindication: low risk/ambulating Lines/Catheters IV C[facility] (from [facility] Saline Lock Assessment/Plan Problems: (1) UTI due to extended-spectrum beta lactamase (ESBL) producing Escherichia coli Status: Acute Comment: On antibiotics with end date put in the orders (2) Iron deficiency anemia Status: Chronic Comment: On oral replacement therapy Qualifiers: Iron deficiency anemia type: chronic blood loss Qualified Codes: D50.0 - Iron deficiency anemia secondary to blood loss (chronic) (3) Intertrochanteric fracture of left hip Status: Acute Comment: Post hip surgery and progressing nicely Qualifiers: Encounter type: subsequent encounter Fracture type: closed Fracture alignment: nondisplaced Fracture healing: with routine healing Qualified Codes: S72.145D - Nondisplaced intertrochanteric fracture of left femur, subsequent encounter for closed fracture with routine healing (4) History of smoking 30 or more pack years Status: Chronic Comment: Re-counseled (5) Grade I diastolic dysfunction Status: Chronic Comment: Noted Result Diagram: 11/23/18 0746 11/23/18 0746 Subjective 24 Hr Interval Summary Free Text/Dictation Patient reports that all is doing well today Respiratory: no complaints Cardiovascular: no complaints Gastrointestinal: no complaints Genitourinary: no complaints (Specifically no complaints) Exam/Review of Systems Exam Vitals Vital Signs Date Temp Pulse Resp B/P (MAP) Pulse Ox O2 O2 Flow FiO2 Time Delivery Rate 11/26/18 97.1 89 18 129/58 96 Room Air 07:00 (81) Intake and Output 11/25/18 11/25/18 11/26/18 1515:00 23:00 07:00 IntakeIntake Total 290 ml 1000 ml 100 ml BalanceBalance 290 ml 1000 ml 100 ml Constitutional: alert, oriented Respiratory: clear to auscultation, normal air movement Cardiovascular: regular rate and rhythm, nl pulses Gastrointestinal: soft, nl liver, spleen, non-tender Medications Medication Current Medications Miscellaneous Information [facility] This patient funk... PRN PRN XX WOUND CARE; Start 11/22/18 at 19:00 Acetaminophen (Tylenol Tab) 650 mg Q6H PRN PO MILD PAIN(1-3)OR ELEVATED TEMP Last administered on 11/25/18 20:41; Admin Dose 650 MG; Start 11/22/18 at 19:00 Enoxaparin Sodium (Lovenox) 40 mg DAILY SC Last administered on 11/26/18 08:53; Admin Dose 40 MG; Start 11/23/18 at 09:00 Ondansetron HCl (Zofran Odt) 4 mg Q6H PRN ODT NAUSEA; Start 11/22/18 at 19:00 Oxycodone HCl (Roxicodone) 5 mg Q4H PRN PO MODERATE PAIN LEVEL 4-6; Start 11/22/18 at 19:00 Docusate Sodium (Colace) 100 mg BID PO Last administered on 11/26/18 08:49; Admin Dose 100 MG; Start 11/22/18 at 21:00 Senna (Senokot) 1 tab DAILY PO Last administered on 11/26/18 08:58; Admin Dose 1 TAB; Start 11/23/18 at 09:00 Lactulose (Enulose) 10 gm DAILY PRN PO CONSTIPATION; Start 11/22/18 at 19:30 Magnesium Hydroxide (Milk Of Mag) 30 ml DAILY PRN PO CONSTIPATION Last administered on 11/24/18 16:14; Admin Dose 30 ML; Start 11/22/18 at 19:30 Bisacodyl (Dulcolax Supp) 10 mg DAILY PRN [place] CONSTIPATION; Start 11/22/18 at 19:30 Ferrous Sulfate (Ferrous Sulfate (Ec)) 325 mg DAILY PO Last administered on 11/26/18 08:49; Admin Dose 325 MG; Start 11/24/18 at 12:00; Stop 12/24/18 at 11:59 Ceftriaxone Sodium 50 ml @ 100 mls/hr Q24H IVPB Last administered on 11/25/18 12:33; Admin Dose 100 MLS/HR; Start 11/24/18 at 13:00 Zolpidem Tartrate (Ambien) 5 mg HS MAY REPEAT X 1 PRN PO INSOMNIA Last administered on 11/25/18 20:42; Admin Dose 5 MG; Start 11/24/18 at 21:00 Levofloxacin (Levaquin) 250 mg DAILY@06 PO Last administered on 11/26/18at 06:06; Admin Dose 250 MG; Start 11/26/18 at 06:00 IMAN SCHMIDT MD November 26, 2018 10:24
[2018-11-26] MEDS: CEFTRIAXONE 1 GM/50 ML (PMX) 50 ML IVPB SCH (12:30)
[2018-11-26 14:00] VITALS: BP 131/59; PULSE 99; RESP 18
[2018-11-26 20:00] VITALS: BP 127/60; PULSE 98; RESP 18
[2018-11-26] MEDS: ACETAMINOPHEN 325 MG TAB PO PRN (20:43)
[2018-11-26] MEDS: ZOLPIDEM 5 MG TAB PO PRN (20:44)
[2018-11-27 02:00] VITALS: BP 120/58; PULSE 84; RESP 18
[2018-11-27] MEDS: LEVOFLOXACIN 250 MG TAB PO SCH (06:19)
[2018-11-27 07:49] VITALS: BP 135/56; PULSE 88; RESP 17
[2018-11-27] MEDS: FERROUS SULFATE (EC) 325 MG TAB PO SCH (09:44)
[2018-11-27] MEDS: SENNA TAB PO SCH (09:44)
[2018-11-27] MEDS: DOCUSATE SODIUM 100 MG CAP PO SCH ×2 (09:44→21:05)
[2018-11-27] MEDS: ENOXAPARIN 40 MG/0.4 ML SYG SC SCH (09:54)
--- NOTE | 2018-11-27 13:38 | PN ---
Date/Time of Note Date/Time of Note DATE: 11/27/18 TIME: 13:38 Objective Vital Signs Date Temp Pulse Resp B/P (MAP) Pulse Ox O2 O2 Flow FiO2 Time Delivery Rate 11/27/18 98.3 88 17 135/56 95 Room Air 07:49 (82) Intake and Output 11/26/18 11/26/18 11/27/18 1515:00 23:00 07:00 IntakeIntake Total 750 ml 1200 ml OutputOutput Total 700 ml BalanceBalance 750 ml 500 ml Exam INTERDISCIPLINARY TEAM CONFERENCE Attended by PT, OT, ST, Rotary Bar Operator, Social Work, Rehabilitation Nursing, Clinical Pharmacy Manager and Logistics AdministratorGround Crew Lines Person Exam: Pulm- cta Abd-soft BOWEL- Cont BLADDER-Cont SKIN- intact OT- DRESSING-cga/min BATHING-cga/min TOILETING-min PT- BED MOBILITY-cga TRANSFERS-min AMBULATION-min 100 feet A/P- Interdisciplinary team conference held today. Please see interdisciplinary sheet. Working toward d.c. on 12/01 with post discharge follow up of physical therapy, occupational therapy. Results/Medications Result Diagram: 11/23/18 0746 11/23/18 0746 Medications Current Medications Miscellaneous Information (Pending [facility] Order For Wound Care) This patient funk... PRN PRN XX WOUND CARE; Start 11/22/18 at 19:00 Acetaminophen (Tylenol Tab) 650 mg Q6H PRN PO MILD PAIN(1-3)OR ELEVATED TEMP Last administered on 11/26/18at 20:43; Admin Dose 650 MG; Start 11/22/18 at 19:00 Enoxaparin Sodium (Lovenox) 40 mg DAILY SC Last administered on 11/27/18at 09:54; Admin Dose 40 MG; Start 11/23/18 at 09:00 Ondansetron HCl (Zofran Odt) 4 mg Q6H PRN ODT NAUSEA; Start 11/22/18 at 19:00 Oxycodone HCl (Roxicodone) 5 mg Q4H PRN PO MODERATE PAIN LEVEL 4-6; Start 11/22/18 at 19:00 Docusate Sodium (Colace) 100 mg BID PO Last administered on 11/27/18at 09:44; Admin Dose 100 MG; Start 11/22/18 at 21:00 Senna (Senokot) 1 tab DAILY PO Last administered on 11/27/18at 09:44; Admin Dose 1 TAB; Start 11/23/18 at 09:00 Lactulose (Enulose) 10 gm DAILY PRN PO CONSTIPATION; Start 11/22/18 at 19:30 Magnesium Hydroxide (Milk Of Mag) 30 ml DAILY PRN PO CONSTIPATION Last administered on 11/24/18at 16:14; Admin Dose 30 ML; Start 11/22/18 at 19:30 Bisacodyl (Dulcolax Supp) 10 mg DAILY PRN [place] CONSTIPATION; Start 11/22/18 at 19:30 Ferrous Sulfate (Ferrous Sulfate (Ec)) 325 mg DAILY PO Last administered on 11/27/18 09:44; Admin Dose 325 MG; Start 11/24/18 at 12:00; Stop 12/24/18 at 11:59 Ceftriaxone Sodium 50 ml @ 100 mls/hr Q24H IVPB Last administered on 11/26/18at 12:30; Admin Dose 100 MLS/HR; Start 11/24/18 at 13:00; Stop 11/28/18 at 12:59 Zolpidem Tartrate (Ambien) 5 mg HS MAY REPEAT X 1 PRN PO INSOMNIA Last administered on 11/26/18at 20:44; Admin Dose 5 MG; Start 11/24/18 at 21:00 Levofloxacin (Levaquin) 250 mg DAILY@06 PO Last administered on 11/27/18 06:19; Admin Dose 250 MG; Start 11/26/18 at 06:00; Stop 12/03/18 at 05:59 CLEMENTINE SANCHEZ MD November 27, 2018 13:38
[2018-11-27] MEDS: CEFTRIAXONE 1 GM/50 ML (PMX) 50 ML IVPB SCH (14:15)
[2018-11-27 14:28] VITALS: BP 110/48; PULSE 92; RESP 16
--- NOTE | 2018-11-27 14:49 | PN ---
Date/Time of Note Date/Time of Note DATE: 11/27/18 TIME: 14:45 Assessment/Plan VTE Prophylaxis Risk score (from Ns)>0 risk: 10 SCD applied (from Ns): Yes Pharmacological prophylaxis: LMWH Lines/Catheters IV Catheter Type (from [facility]): Saline Lock Assessment/Plan Hospital Course SUBJECTIVE: No acute distress. OBJECTIVE: Vital signs-see below PHYSICAL EXAM: Constitutional: charming elderly female,not in acute distress. HEENT: Head atraumatic and normocephalic. Eyes: Extraocular muscles intact. Anicteric sclerae. Pupils equal bilaterally, reactive to light. NECK: Supple without lymph node. CHEST: Clear and good breath sounds equally. No wheezing. No rhonchi. HEART: S1, S2. Regular rate and rhythm. ABDOMEN: Soft/non tender with no rebound tenderness. Bowel sounds were present. EXTREMITIES: L Hip w/ intact dressing. No cyanosis, clubbing or edema. NEUROLOGIC: Alert and oriented x3. No focal deficit. No sensory deficit. PSYCHOSOCIAL: No signs of depression. INTEGUMENTARY: No open wounds. ASSESSMENT AND PLAN:83 yo f w/no pmh underwent IM nail of left hip secondary to left displaced intertrochanteric hip fracture, transferred for rehab. 1. Acute left displaced intertrochanteric hip fracture -S/p Intramedullary nail of left intertrochanteric hip fracture 12/2018 -dvt ppx, pain control.. -PT/rehab 2. Chronic anemia. -Stable H&H. -low dose oral iron 3. Positive urine culture, more likely asymptomatic bacteriuria. No signs to suggest UTI. -Culture showed 10-20 CFU ESBL-UA clean -Stop ceftriaxone and continue on Levaquin with stop date placed -repeat urine culture DVT prophylaxis: Lovenox Patient was seen in collaboration with Result Diagram: 11/23/18 0746 11/23/18 0746 Exam/Review of Systems Exam Vitals Vital Signs Date Temp Pulse Resp B/P (MAP) Pulse Ox O2 O2 Flow FiO2 Time Delivery Rate 11/27/18 98.2 92 16 110/48 94 Room Air 14:28 (68) Intake and Output 11/26/18 11/26/18 11/27/18 1515:00 23:00 07:00 IntakeIntake Total 750 ml 1200 ml OutputOutput Total 700 ml BalanceBalance 750 ml 500 ml Medications Medication Current Medications Miscellaneous Information (Pending [facility] Order For Wound Care) This patient funk... PRN PRN XX WOUND CARE; Start 11/22/18 at 19:00 Acetaminophen (Tylenol Tab) 650 mg Q6H PRN PO MILD PAIN(1-3)OR ELEVATED TEMP Last administered on 11/26/18 20:43; Admin Dose 650 MG; Start 11/22/18 at 19:00 Enoxaparin Sodium (Lovenox) 40 mg DAILY SC Last administered on 11/27/18 09:54; Admin Dose 40 MG; Start 11/23/18 at 09:00 Ondansetron HCl (Zofran Odt) 4 mg Q6H PRN ODT NAUSEA; Start 11/22/18 at 19:00 Oxycodone HCl (Roxicodone) 5 mg Q4H PRN PO MODERATE PAIN LEVEL 4-6; Start 11/22/18 at 19:00 Docusate Sodium (Colace) 100 mg BID PO Last administered on 11/27/18 09:44; Admin Dose 100 MG; Start 11/22/18 at 21:00 Senna (Senokot) 1 tab DAILY PO Last administered on 11/27/18 09:44; Admin Dose 1 TAB; Start 11/23/18 at 09:00 Lactulose (Enulose) 10 gm DAILY PRN PO CONSTIPATION; Start 11/22/18 at 19:30 Magnesium Hydroxide (Milk Of Mag) 30 ml DAILY PRN PO CONSTIPATION Last administered on 11/24/18at 16:14; Admin Dose 30 ML; Start 11/22/18 at 19:30 Bisacodyl (Dulcolax Supp) 10 mg DAILY PRN [place] CONSTIPATION; Start 11/22/18 at 19:30 Ferrous Sulfate (Ferrous Sulfate (Ec)) 325 mg DAILY PO Last administered on 11/27/18 09:44; Admin Dose 325 MG; Start 11/24/18 at 12:00; Stop 12/24/18 at 11:59 Ceftriaxone Sodium 50 ml @ 100 mls/hr Q24H IVPB Last administered on 11/27/18 14:15; Admin Dose 100 MLS/HR; Start 11/24/18 at 13:00; Stop 11/28/18 at 12:59 Zolpidem Tartrate (Ambien) 5 mg HS NOVEMBER REPEAT X 1 PRN PO INSOMNIA Last administered on 11/26/18at 20:44; Admin Dose 5 MG; Start 11/24/18 at 21:00 Levofloxacin (Levaquin) 250 mg DAILY@06 PO Last administered on 11/27/18at 06:19; Admin Dose 250 MG; Start 11/26/18 at 06:00; Stop 12/03/18 at 05:59 GE PATE NP November 27, 2018 14:49
[2018-11-27 20:00] VITALS: BP 131/59; PULSE 93; RESP 18
[2018-11-27] MEDS: ACETAMINOPHEN 325 MG TAB PO PRN (21:05)
[2018-11-27] MEDS: ZOLPIDEM 5 MG TAB PO PRN (21:05)
[2018-11-28 02:00] VITALS: BP 136/60; PULSE 77; RESP 18
[2018-11-28] MEDS: LEVOFLOXACIN 250 MG TAB PO SCH (06:49)
[2018-11-28 07:46] VITALS: BP 121/51; PULSE 76; RESP 20
[2018-11-28] MEDS: DOCUSATE SODIUM 100 MG CAP PO SCH ×2 (09:36→21:27)
[2018-11-28] MEDS: SENNA TAB PO SCH (09:37)
[2018-11-28] MEDS: FERROUS SULFATE (EC) 325 MG TAB PO SCH (09:37)
[2018-11-28] MEDS: ENOXAPARIN 40 MG/0.4 ML SYG SC SCH (09:40)
--- NOTE | 2018-11-28 13:04 | PN ---
Date/Time of Note Date/Time of Note DATE: 11/28/18 TIME: 13:03 Assessment/Plan VTE Prophylaxis Risk score (from Ns)>0 risk: 10 SCD applied (from Ns): Yes Pharmacological prophylaxis: LMWH Lines/Catheters [facility] Saline Lock Assessment/Plan Hospital Course SUBJECTIVE: No acute distress. OBJECTIVE: Vital signs-see below PHYSICAL EXAM: Constitutional: charming elderly female,not in acute distress. HEENT: Head atraumatic and normocephalic. Eyes: Extraocular muscles intact. Anicteric sclerae. Pupils equal bilaterally, reactive to light. NECK: Supple without lymph node. CHEST: Clear and good breath sounds equally. No wheezing. No rhonchi. HEART: S1, S2. Regular rate and rhythm. ABDOMEN: Soft/non tender with no rebound tenderness. Bowel sounds were present. EXTREMITIES: L Hip w/ intact dressing. No cyanosis, clubbing or edema. NEUROLOGIC: Alert and oriented x3. No focal deficit. No sensory deficit. PSYCHOSOCIAL: No signs of depression. INTEGUMENTARY: No open wounds. ASSESSMENT AND PLAN:83 yo f w/no pmh underwent IM nail of left hip secondary to left displaced intertrochanteric hip fracture, transferred for rehab. 1. Acute left displaced intertrochanteric hip fracture -S/p Intramedullary nail of left intertrochanteric hip fracture 12/2018 -dvt ppx, pain control.. -PT/rehab 2. Chronic anemia. -Stable H&H. -cont. low dose oral iron 3. Positive urine culture, more likely asymptomatic bacteriuria. No signs to suggest UTI. -Culture showed 10-20 CFU ESBL-UA clean -continue on Levaquin with stop date placed DVT prophylaxis: Lovenox Patient was seen in collaboration with Exam/Review of Systems Exam Vitals Vital Signs Date Temp Pulse Resp B/P (MAP) Pulse Ox O2 O2 Flow FiO2 Time Delivery Rate 11/28/18 97.7 76 20 121/51 95 Room Air 07:46 (74) Intake and Output 11/27/18 11/27/18 11/28/18 1515:00 23:00 07:00 IntakeIntake Total 590 ml 320 ml BalanceBalance 590 ml 320 ml Medications Medication Current Medications Miscellaneous Information (Pending [facility] Order For Wound Care) This patient funk... PRN PRN XX WOUND CARE; Start 11/22/18 at 19:00 Acetaminophen (Tylenol Tab) 650 mg Q6H PRN PO MILD PAIN(1-3)OR ELEVATED TEMP Last administered on 11/27/18 21:05; Admin Dose 650 MG; Start 11/22/18 at 19:00 Enoxaparin Sodium (Lovenox) 40 mg DAILY SC Last administered on 11/28/18 09:40; Admin Dose 40 MG; Start 11/23/18 at 09:00 Ondansetron HCl (Zofran Odt) 4 mg Q6H PRN ODT NAUSEA; Start 11/22/18 at 19:00 Oxycodone HCl (Roxicodone) 5 mg Q4H PRN PO MODERATE PAIN LEVEL 4-6; Start 11/22/18 at 19:00 Docusate Sodium (Colace) 100 mg BID PO Last administered on 11/28/18 09:36; Admin Dose 100 MG; Start 11/22/18 at 21:00 Senna (Senokot) 1 tab DAILY PO Last administered on 11/28/18 09:37; Admin Dose 1 TAB; Start 11/23/18 at 09:00 Lactulose (Enulose) 10 gm DAILY PRN PO CONSTIPATION; Start 11/22/18 at 19:30 Magnesium Hydroxide (Milk Of Mag) 30 ml DAILY PRN PO CONSTIPATION Last administered on 11/24/18 16:14; Admin Dose 30 ML; Start 11/22/18 at 19:30 Bisacodyl (Dulcolax Supp) 10 mg DAILY PRN [place] CONSTIPATION; Start 11/22/18 at 19:30 Ferrous Sulfate (Ferrous Sulfate (Ec)) 325 mg DAILY PO Last administered on 11/28/18 09:37; Admin Dose 325 MG; Start 11/24/18 at 12:00; Stop 12/24/18 at 11:59 Zolpidem Tartrate (Ambien) 5 mg HS MAY REPEAT X 1 PRN PO INSOMNIA Last administered on 11/27/18 21:05; Admin Dose 5 MG; Start 11/24/18 at 21:00 Levofloxacin (Levaquin) 250 mg DAILY@06 PO Last administered on 11/28/18 06:49; Admin Dose 250 MG; Start 11/26/18 at 06:00; Stop 12/03/18 at 05:59 GE PATE NP November 28, 2018 13:04
[2018-11-28 14:04] VITALS: BP 122/58; PULSE 98; RESP 18
--- NOTE | 2018-11-28 14:10 | PN ---
Date/Time of Note Date/Time of Note DATE: 11/28/18 TIME: 14:10 Subjective Comfortable Objective Vital Signs Date Temp Pulse Resp B/P (MAP) Pulse Ox O2 O2 Flow FiO2 Time Delivery Rate 11/28/18 98.5 98 18 122/58 95 Room Air 14:04 (79) Intake and Output 11/27/18 11/27/18 11/28/18 1515:00 23:00 07:00 IntakeIntake Total 590 ml 320 ml BalanceBalance 590 ml 320 ml Exam pulm-cta abd-soft min assist Results/Medications Medications Current Medications Miscellaneous Information [facility] This patient funk... PRN PRN XX WOUND CARE; Start 11/22/18 at 19:00 Acetaminophen (Tylenol Tab) 650 mg Q6H PRN PO MILD PAIN(1-3)OR ELEVATED TEMP Last administered on 11/27/18at 21:05; Admin Dose 650 MG; Start 11/22/18 at 19:00 Enoxaparin Sodium (Lovenox) 40 mg DAILY SC Last administered on 11/28/18at 09:40; Admin Dose 40 MG; Start 11/23/18 at 09:00 Ondansetron HCl (Zofran Odt) 4 mg Q6H PRN ODT NAUSEA; Start 11/22/18 at 19:00 Oxycodone HCl (Roxicodone) 5 mg Q4H PRN PO MODERATE PAIN LEVEL 4-6; Start 11/22/18 at 19:00 Docusate Sodium (Colace) 100 mg BID PO Last administered on 11/28/18at 09:36; Admin Dose 100 MG; Start 11/22/18 at 21:00 Senna (Senokot) 1 tab DAILY PO Last administered on 11/28/18at 09:37; Admin Dose 1 TAB; Start 11/23/18 at 09:00 Lactulose (Enulose) 10 gm DAILY PRN PO CONSTIPATION; Start 11/22/18 at 19:30 Magnesium Hydroxide (Milk Of Mag) 30 ml DAILY PRN PO CONSTIPATION Last administered on 11/24/18at 16:14; Admin Dose 30 ML; Start 11/22/18 at 19:30 Bisacodyl (Dulcolax Supp) 10 mg DAILY PRN [place] CONSTIPATION; Start 11/22/18 at 19:30 Ferrous Sulfate (Ferrous Sulfate (Ec)) 325 mg DAILY PO Last administered on 11/28/18at 09:37; Admin Dose 325 MG; Start 11/24/18 at 12:00; Stop 12/24/18 at 11:59 Zolpidem Tartrate (Ambien) 5 mg HS MAY REPEAT X 1 PRN PO INSOMNIA Last administered on 11/27/18at 21:05; Admin Dose 5 MG; Start 11/24/18 at 21:00 Levofloxacin (Levaquin) 250 mg DAILY@06 PO Last administered on 11/28/18at 06:49; Admin Dose 250 MG; Start 11/26/18 at 06:00; Stop 12/03/18 at 05:59 Assessment/Plan Additional Assessment/Plan Rehab- Left intertrochanteric hip fracture status post intramedullary nailing. Continue rehab program Acute pain syndrome- continue current meds Anemia. Atherosclerotic heart disease. CLEMENTINE SANCHEZ MD November 28, 2018 14:10
[2018-11-28 21:26] VITALS: BP 124/56; PULSE 92; RESP 18
[2018-11-28] MEDS: ZOLPIDEM 5 MG TAB PO PRN (23:40)
[2018-11-28] MEDS: ACETAMINOPHEN 325 MG TAB PO PRN (23:40)
[2018-11-29 02:30] VITALS: BP 124/70; PULSE 78; RESP 18
[2018-11-29] MEDS: LEVOFLOXACIN 250 MG TAB PO SCH (06:29)
[2018-11-29 07:30] VITALS: BP 130/60; PULSE 84; RESP 18
[2018-11-29] MEDS: DOCUSATE SODIUM 100 MG CAP PO SCH ×2 (09:46→21:08)
[2018-11-29] MEDS: FERROUS SULFATE (EC) 325 MG TAB PO SCH (09:46)
[2018-11-29] MEDS: SENNA TAB PO SCH (09:46)
[2018-11-29] MEDS: ENOXAPARIN 40 MG/0.4 ML SYG SC SCH (09:47)
--- NOTE | 2018-11-29 12:44 | PN ---
Date/Time of Note Date/Time of Note DATE: 11/29/18 TIME: 12:42 Assessment/Plan VTE Prophylaxis Risk score (from Ns)>0 risk: 9 [place] [facility] [place]CD contraindicated: other Pharmacological prophylaxis: LMWH Lines/Catheters IV Catheter Type (from [facility]): Saline Lock Assessment/Plan Hospital Course SUBJECTIVE: No acute distress. OBJECTIVE: Vital signs-see below PHYSICAL EXAM: Constitutional: charming elderly female,not in acute distress. HEENT: Head atraumatic and normocephalic. Eyes: Extraocular muscles intact. Anicteric sclerae. Pupils equal bilaterally, reactive to light. NECK: Supple without lymph node. CHEST: Clear and good breath sounds equally. No wheezing. No rhonchi. HEART: S1, S2. Regular rate and rhythm. ABDOMEN: Soft/non tender with no rebound tenderness. Bowel sounds were present. EXTREMITIES: L Hip w/ intact dressing. No cyanosis, clubbing or edema. NEUROLOGIC: Alert and oriented x3. No focal deficit. No sensory deficit. PSYCHOSOCIAL: No signs of depression. INTEGUMENTARY: No open wounds. ASSESSMENT AND PLAN:83 yo f w/no pmh underwent IM nail of left hip secondary to left displaced intertrochanteric hip fracture, transferred for rehab. 1. Acute left displaced intertrochanteric hip fracture -S/p Intramedullary nail of left intertrochanteric hip fracture 12/2018 -dvt ppx, pain control.. -PT/rehab 2. Chronic anemia. -Stable H&H. -cont. low dose oral iron 3. UTI. - on Levaquin with stop date placed DVT prophylaxis: Lovenox Patient was seen in collaboration with Results 24hrs Laboratory Tests Test 11/29/18 05:30 Urine Color YELLOW Urine Clarity CLEAR Urine pH 5.0 Urine Specific [place] 1.021 Urine Ketones NEGATIVE Urine Nitrite NEGATIVE Urine Bilirubin NEGATIVE Urine Urobilinogen NEGATIVE Urine Leukocyte Esterase NEGATIVE Urine Hemoglobin NEGATIVE Urine Glucose NEGATIVE Urine Total Protein NEGATIVE Exam/Review of Systems Exam Vitals Vital Signs Date Temp Pulse Resp B/P (MAP) Pulse Ox O2 O2 Flow FiO2 Time Delivery Rate 11/29/18 98.1 84 18 130/60 98 Room Air 07:30 (83) Intake and Output 11/28/18 11/28/18 11/29/18 1515:00 23:00 07:00 IntakeIntake Total 300 ml 130 ml BalanceBalance 300 ml 130 ml Results Results 24hrs Laboratory Tests Test 11/29/18 05:30 Urine Color YELLOW Urine Clarity CLEAR Urine pH 5.0 Urine Specific [place] 1.021 Urine Ketones NEGATIVE Urine Nitrite NEGATIVE Urine Bilirubin NEGATIVE Urine Urobilinogen NEGATIVE Urine Leukocyte Esterase NEGATIVE Urine Hemoglobin NEGATIVE Urine Glucose NEGATIVE Urine Total Protein NEGATIVE Medications Medication Current Medications Miscellaneous Information (Pending [facility] Order For Wound Care) This patient funk... PRN PRN XX WOUND CARE; Start 11/22/18 at 19:00 Acetaminophen (Tylenol Tab) 650 mg Q6H PRN PO MILD PAIN(1-3)OR ELEVATED TEMP Last administered on 11/28/18at 23:40; Admin Dose 650 MG; Start 11/22/18 at 19:00 Enoxaparin Sodium (Lovenox) 40 mg DAILY SC Last administered on 11/29/18at 09:47; Admin Dose 40 MG; Start 11/23/18 at 09:00 Ondansetron HCl (Zofran Odt) 4 mg Q6H PRN ODT NAUSEA; Start 11/22/18 at 19:00 Oxycodone HCl (Roxicodone) 5 mg Q4H PRN PO MODERATE PAIN LEVEL 4-6; Start 11/22/18 at 19:00 Docusate Sodium (Colace) 100 mg BID PO Last administered on 11/29/18at 09:46; Admin Dose 100 MG; Start 11/22/18 at 21:00 Senna (Senokot) 1 tab DAILY PO Last administered on 11/29/18at 09:46; Admin Dose 1 TAB; Start 11/23/18 at 09:00 Lactulose (Enulose) 10 gm DAILY PRN PO CONSTIPATION; Start 11/22/18 at 19:30 Magnesium Hydroxide (Milk Of Mag) 30 ml DAILY PRN PO CONSTIPATION Last administered on 11/24/18at 16:14; Admin Dose 30 ML; Start 11/22/18 at 19:30 Bisacodyl (Dulcolax Supp) 10 mg DAILY PRN [place] CONSTIPATION; Start 11/22/18 at 19:30 Ferrous Sulfate (Ferrous Sulfate (Ec)) 325 mg DAILY PO Last administered on 11/29/18at 09:46; Admin Dose 325 MG; Start 11/24/18 at 12:00; Stop 12/24/18 at 11:59 Zolpidem Tartrate (Ambien) 5 mg HS MAY REPEAT X 1 PRN PO INSOMNIA Last administered on 11/28/18at 23:40; Admin Dose 5 MG; Start 11/24/18 at 21:00 Levofloxacin (Levaquin) 250 mg DAILY@06 PO Last administered on 11/29/18at 06:29; Admin Dose 250 MG; Start 11/26/18 at 06:00; Stop 12/03/18 at 05:59 GE PATE NP November 29, 2018 12:44
[2018-11-29 14:00] VITALS: BP_SYST 126; BP_SYST 147; BP_DIAS 59; BP_DIAS 63; PULSE 64; PULSE 94; RESP 20
--- NOTE | 2018-11-29 14:16 | PN ---
Date/Time of Note Date/Time of Note DATE: 11/29/18 TIME: 14:15 Subjective Doing well Objective Vital Signs Date Temp Pulse Resp B/P (MAP) Pulse Ox O2 O2 Flow FiO2 Time Delivery Rate 11/29/18 98.1 84 18 130/60 98 Room Air 07:30 (83) Intake and Output 11/28/18 11/28/18 11/29/18 1515:00 23:00 07:00 IntakeIntake Total 300 ml 130 ml BalanceBalance 300 ml 130 ml Exam pulm-cta abd-soft cga ambulation 100 feet Results/Medications Results 24 hrs Laboratory Tests Test 11/29/18 05:30 Urine Color YELLOW Urine Clarity CLEAR Urine pH 5.0 Urine Specific [place] 1.021 Urine Ketones NEGATIVE Urine Nitrite NEGATIVE Urine Bilirubin NEGATIVE Urine Urobilinogen NEGATIVE Urine Leukocyte Esterase NEGATIVE Urine Hemoglobin NEGATIVE Urine Glucose NEGATIVE Urine Total Protein NEGATIVE Medications Current Medications [facility] This patient funk... PRN PRN XX WOUND CARE; Start 11/22/18 at 19:00 Acetaminophen (Tylenol Tab) 650 mg Q6H PRN PO MILD PAIN(1-3)OR ELEVATED TEMP Last administered on 11/28/18at 23:40; Admin Dose 650 MG; Start 11/22/18 at 19:00 Enoxaparin Sodium (Lovenox) 40 mg DAILY SC Last administered on 11/29/18at 09:47; Admin Dose 40 MG; Start 11/23/18 at 09:00 Ondansetron HCl (Zofran Odt) 4 mg Q6H PRN ODT NAUSEA; Start 11/22/18 at 19:00 Oxycodone HCl (Roxicodone) 5 mg Q4H PRN PO MODERATE PAIN LEVEL 4-6; Start 11/22/18 at 19:00 Docusate Sodium (Colace) 100 mg BID PO Last administered on 11/29/18at 09:46; Admin Dose 100 MG; Start 11/22/18 at 21:00 Senna (Senokot) 1 tab DAILY PO Last administered on 11/29/18at 09:46; Admin Dose 1 TAB; Start 11/23/18 at 09:00 Lactulose (Enulose) 10 gm DAILY PRN PO CONSTIPATION; Start 11/22/18 at 19:30 Magnesium Hydroxide (Milk Of Mag) 30 ml DAILY PRN PO CONSTIPATION Last administered on 11/24/18at 16:14; Admin Dose 30 ML; Start 11/22/18 at 19:30 Bisacodyl (Dulcolax Supp) 10 mg DAILY PRN [place] CONSTIPATION; Start 11/22/18 at 19:30 Ferrous Sulfate (Ferrous Sulfate (Ec)) 325 mg DAILY PO Last administered on 11/29/18at 09:46; Admin Dose 325 MG; Start 11/24/18 at 12:00; Stop 12/24/18 at 11:59 Zolpidem Tartrate (Ambien) 5 mg HS MAY REPEAT X 1 PRN PO INSOMNIA Last administered on 11/28/18at 23:40; Admin Dose 5 MG; Start 11/24/18 at 21:00 Levofloxacin (Levaquin) 250 mg DAILY@06 PO Last administered on 11/29/18at 06:29; Admin Dose 250 MG; Start 11/26/18 at 06:00; Stop 12/03/18 at 05:59 Assessment/Plan Additional Assessment/Plan Rehab- Left intertrochanteric hip fracture status post intramedullary nailing. Steady gains with rehab Acute pain syndrome- continue current meds Anemia. Constipation-bowel program Atherosclerotic heart disease. CLEMENTINE SANCHEZ MD November 29, 2018 14:16
[2018-11-29 20:23] VITALS: BP 126/60; PULSE 88; RESP 18
[2018-11-29] MEDS: ZOLPIDEM 5 MG TAB PO PRN (22:14)
[2018-11-30 02:00] VITALS: BP 132/65; PULSE 92; RESP 18
[2018-11-30] MEDS: LEVOFLOXACIN 250 MG TAB PO SCH (06:12)
[2018-11-30 10:53] VITALS: BP 124/60; PULSE 91; RESP 18
[2018-11-30] MEDS: FERROUS SULFATE (EC) 325 MG TAB PO SCH (11:05)
[2018-11-30] MEDS: SENNA TAB PO SCH (11:05)
[2018-11-30] MEDS: DOCUSATE SODIUM 100 MG CAP PO SCH ×2 (11:05→20:39)
[2018-11-30] MEDS: ENOXAPARIN 40 MG/0.4 ML SYG SC SCH (11:10)
--- NOTE | 2018-11-30 11:53 | PN ---
Date/Time of Note Date/Time of Note DATE: 11/30/18 TIME: 11:53 Assessment/Plan VTE Prophylaxis Risk score (from Ns)>0 risk: 12 [place] [facility] [place] contraindicated: other Pharmacological prophylaxis: LMWH Lines/Catheters IV Catheter Type (from [facility] Saline Lock Assessment/Plan Hospital Course SUBJECTIVE: No acute distress. OBJECTIVE: Vital signs-see below PHYSICAL EXAM: Constitutional: charming elderly female,not in acute distress. HEENT: Head atraumatic and normocephalic. Eyes: Extraocular muscles intact. Anicteric sclerae. Pupils equal bilaterally, reactive to light. NECK: Supple without lymph node. CHEST: Clear and good breath sounds equally. No wheezing. No rhonchi. HEART: S1, S2. Regular rate and rhythm. ABDOMEN: Soft/non tender with no rebound tenderness. Bowel sounds were present. EXTREMITIES: L Hip w/ intact dressing. No cyanosis, clubbing or edema. NEUROLOGIC: Alert and oriented x3. No focal deficit. No sensory deficit. PSYCHOSOCIAL: No signs of depression. INTEGUMENTARY: No open wounds. ASSESSMENT AND PLAN:83 yo f w/no pmh underwent IM nail of left hip secondary to left displaced intertrochanteric hip fracture, transferred for rehab. 1. Acute left displaced intertrochanteric hip fracture -S/p Intramedullary nail of left intertrochanteric hip fracture 12/2018 -dvt ppx, pain control.. -PT/rehab 2. Chronic anemia. -Stable H&H. -cont. low dose oral iron 3. UTI. - on Levaquin with stop date placed - repeat cs negative DVT prophylaxis: Lovenox Patient was seen in collaboration with Exam/Review of Systems Exam Vitals Vital Signs Date Temp Pulse Resp B/P (MAP) Pulse Ox O2 O2 Flow FiO2 Time Delivery Rate 11/30/18 98.7 91 18 124/60 99 Room Air 10:53 (81) Intake and Output 11/29/18 11/29/18 11/30/18 1515:00 23:00 07:00 IntakeIntake Total 640 ml BalanceBalance 640 ml Medications Medication Current Medications M[facility] This patient funk... PRN PRN XX WOUND CARE; Start 11/22/18 at 19:00 Acetaminophen (Tylenol Tab) 650 mg Q6H PRN PO MILD PAIN(1-3)OR ELEVATED TEMP Last administered on 11/28/18 23:40; Admin Dose 650 MG; Start 11/22/18 at 19:00 Enoxaparin Sodium (Lovenox) 40 mg DAILY SC Last administered on 11/30/18 11:10; Admin Dose 40 MG; Start 11/23/18 at 09:00 Ondansetron HCl (Zofran Odt) 4 mg Q6H PRN ODT NAUSEA; Start 11/22/18 at 19:00 Oxycodone HCl (Roxicodone) 5 mg Q4H PRN PO MODERATE PAIN LEVEL 4-6; Start 11/22/18 at 19:00 Docusate Sodium (Colace) 100 mg BID PO Last administered on 11/30/18 11:05; Admin Dose 100 MG; Start 11/22/18 at 21:00 Senna (Senokot) 1 tab DAILY PO Last administered on 11/30/18 11:05; Admin Dose 1 TAB; Start 11/23/18 at 09:00 Lactulose (Enulose) 10 gm DAILY PRN PO CONSTIPATION; Start 11/22/18 at 19:30 Magnesium Hydroxide (Milk Of Mag) 30 ml DAILY PRN PO CONSTIPATION Last administered on 11/24/18 16:14; Admin Dose 30 ML; Start 11/22/18 at 19:30 Bisacodyl (Dulcolax Supp) 10 mg DAILY PRN [place] CONSTIPATION; Start 11/22/18 at 19:30 Ferrous Sulfate (Ferrous Sulfate (Ec)) 325 mg DAILY PO Last administered on 11/30/18 11:05; Admin Dose 325 MG; Start 11/24/18 at 12:00; Stop 12/24/18 at 11:59 Zolpidem Tartrate (Ambien) 5 mg HS MAY REPEAT X 1 PRN PO INSOMNIA Last administered on 11/29/18 22:14; Admin Dose 5 MG; Start 11/24/18 at 21:00 Levofloxacin (Levaquin) 250 mg DAILY@06 PO Last administered on 11/30/18 06:12; Admin Dose 250 MG; Start 11/26/18 at 06:00; Stop 12/03/18 at 05:59 GE PATE NP November 30, 2018 11:53
--- NOTE | 2018-11-30 13:14 | PN ---
Date/Time of Note Date/Time of Note DATE: 11/30/18 TIME: 13:14 Subjective Cheerful Objective Vital Signs Date Temp Pulse Resp B/P (MAP) Pulse Ox O2 O2 Flow FiO2 Time Delivery Rate 11/30/18 98.7 91 18 124/60 99 Room Air 10:53 (81) Intake and Output 11/29/18 11/29/18 11/30/18 1515:00 23:00 07:00 IntakeIntake Total 640 ml BalanceBalance 640 ml Exam [id number] sba ambulation Results/Medications Medications Current Medications Misc[facility] This patient funk... PRN PRN XX WOUND CARE; Start 11/22/18 at 19:00 Acetaminophen (Tylenol Tab) 650 mg Q6H PRN PO MILD PAIN(1-3)OR ELEVATED TEMP Last administered on 11/28/18at 23:40; Admin Dose 650 MG; Start 11/22/18 at 19:00 Enoxaparin Sodium (Lovenox) 40 mg DAILY SC Last administered on 11/30/18at 11:10; Admin Dose 40 MG; Start 11/23/18 at 09:00 Ondansetron HCl (Zofran Odt) 4 mg Q6H PRN ODT NAUSEA; Start 11/22/18 at 19:00 Oxycodone HCl (Roxicodone) 5 mg Q4H PRN PO MODERATE PAIN LEVEL 4-6; Start 11/22/18 at 19:00 Docusate Sodium (Colace) 100 mg BID PO Last administered on 11/30/18at 11:05; Admin Dose 100 MG; Start 11/22/18 at 21:00 Senna (Senokot) 1 tab DAILY PO Last administered on 11/30/18at 11:05; Admin Dose 1 TAB; Start 11/23/18 at 09:00 Lactulose (Enulose) 10 gm DAILY PRN PO CONSTIPATION; Start 11/22/18 at 19:30 Magnesium Hydroxide (Milk Of Mag) 30 ml DAILY PRN PO CONSTIPATION Last administered on 11/24/18at 16:14; Admin Dose 30 ML; Start 11/22/18 at 19:30 Bisacodyl (Dulcolax Supp) 10 mg DAILY PRN [place] CONSTIPATION; Start 11/22/18 at 19:30 Ferrous Sulfate (Ferrous Sulfate (Ec)) 325 mg DAILY PO Last administered on 11/30/18at 11:05; Admin Dose 325 MG; Start 11/24/18 at 12:00; Stop 12/24/18 at 11:59 Zolpidem Tartrate (Ambien) 5 mg HS MAY REPEAT X 1 PRN PO INSOMNIA Last administered on 11/29/18at 22:14; Admin Dose 5 MG; Start 11/24/18 at 21:00 Levofloxacin (Levaquin) 250 mg DAILY@06 PO Last administered on 11/30/18at 06:12; Admin Dose 250 MG; Start 11/26/18 at 06:00; Stop 12/03/18 at 05:59 Assessment/Plan Additional Assessment/Plan Rehab- Left intertrochanteric hip fracture status post intramedullary nailing. Steady gains with rehab, home tomorrow Acute pain syndrome- continue current meds Anemia. Constipation-bowel program Atherosclerotic heart disease. CLEMENTINE SANCHEZ MD November 30, 2018 13:14
[2018-11-30 15:00] VITALS: BP 106/51; PULSE 95; RESP 18
[2018-11-30 19:50] VITALS: BP 135/65; PULSE 87; RESP 18
[2018-11-30] MEDS: ACETAMINOPHEN 325 MG TAB PO PRN (20:39)
[2018-11-30] MEDS: ZOLPIDEM 5 MG TAB PO PRN (22:00)
[2018-12-01 02:00] VITALS: BP 128/61; PULSE 90; RESP 18
[2018-12-01] MEDS: LEVOFLOXACIN 250 MG TAB PO SCH (06:16)
[2018-12-01 07:00] VITALS: BP 129/62; PULSE 84; RESP 18
[2018-12-01] MEDS: SENNA TAB PO SCH (08:52)
[2018-12-01] MEDS: DOCUSATE SODIUM 100 MG CAP PO SCH (08:52)
[2018-12-01] MEDS: FERROUS SULFATE (EC) 325 MG TAB PO SCH (08:52)
[2018-12-01] MEDS: ENOXAPARIN 40 MG/0.4 ML SYG SC SCH (08:55)
--- NOTE | 2018-12-01 13:33 | PN ---
Date/Time of Note Date/Time of Note DATE: 12/01/18 TIME: 13:33 Assessment/Plan VTE Prophylaxis Risk score (from Ns)>0 risk: 11 SCD applied (from [facility] [place]): No SCD contraindicated: other Pharmacological prophylaxis: LMWH Lines/Catheters IV [facility]from [facility] Saline Lock Assessment/Plan Hospital Course SUBJECTIVE: No acute distress. OBJECTIVE: Vital signs-see below PHYSICAL EXAM: Constitutional: charming elderly female,not in acute distress. HEENT: Head atraumatic and normocephalic. Eyes: Extraocular muscles intact. Anicteric sclerae. Pupils equal bilaterally, reactive to light. NECK: Supple without lymph node. CHEST: Clear and good breath sounds equally. No wheezing. No rhonchi. HEART: S1, S2. Regular rate and rhythm. ABDOMEN: Soft/non tender with no rebound tenderness. Bowel sounds were present. EXTREMITIES: L Hip w/ intact dressing. No cyanosis, clubbing or edema. NEUROLOGIC: Alert and oriented x3. No focal deficit. No sensory deficit. PSYCHOSOCIAL: No signs of depression. INTEGUMENTARY: No open wounds. ASSESSMENT AND PLAN:83 yo f w/no pmh underwent IM nail of left hip secondary to left displaced intertrochanteric hip fracture, transferred for rehab. 1. Acute left displaced intertrochanteric hip fracture -S/p Intramedullary nail of left intertrochanteric hip fracture 12/2018 -dvt ppx, pain control.. -PT/rehab 2. Chronic anemia. -Stable H&H. -cont. low dose oral iron 3. UTI. - on Levaquin with stop date placed - repeat cs negative DVT prophylaxis: Lovenox Patient was seen in collaboration with Exam/Review of Systems Exam Vitals Vital Signs Date Temp Pulse Resp B/P (MAP) Pulse Ox O2 O2 Flow FiO2 Time Delivery Rate 12/01/18 98.7 84 18 129/62 98 Room Air 07:00 (84) Intake and Output 11/30/18 11/30/18 12/01/18 1414:59 22:59 06:59 IntakeIntake Total 400 ml 420 ml 680 ml BalanceBalance 400 ml 420 ml 680 ml Medications Medication Current Medications Miscellaneous [facility] This patient funk... PRN PRN XX WOUND CARE; Start 11/22/18 at 19:00 Acetaminophen (Tylenol Tab) 650 mg Q6H PRN PO MILD PAIN(1-3)OR ELEVATED TEMP Last administered on 11/30/18at 20:39; Admin Dose 650 MG; Start 11/22/18 at 19:00 Enoxaparin Sodium (Lovenox) 40 mg DAILY SC Last administered on 12/01/18 08:55; Admin Dose 40 MG; Start 11/23/18 at 09:00 Ondansetron HCl (Zofran Odt) 4 mg Q6H PRN ODT NAUSEA; Start 11/22/18 at 19:00 Oxycodone HCl (Roxicodone) 5 mg Q4H PRN PO MODERATE PAIN LEVEL 4-6; Start 11/22/18 at 19:00 Docusate Sodium (Colace) 100 mg BID PO Last administered on 12/01/18 08:52; Admin Dose 100 MG; Start 11/22/18 at 21:00 Senna (Senokot) 1 tab DAILY PO Last administered on 12/01/18 08:52; Admin Dose 1 TAB; Start 11/23/18 at 09:00 Lactulose (Enulose) 10 gm DAILY PRN PO CONSTIPATION; Start 11/22/18 at 19:30 Magnesium Hydroxide (Milk Of Mag) 30 ml DAILY PRN PO CONSTIPATION Last administered on 11/24/18at 16:14; Admin Dose 30 ML; Start 11/22/18 at 19:30 Bisacodyl (Dulcolax Supp) 10 mg DAILY PRN [place] CONSTIPATION; Start 11/22/18 at 19:30 Ferrous Sulfate (Ferrous Sulfate (Ec)) 325 mg DAILY PO Last administered on 12/01/18 08:52; Admin Dose 325 MG; Start 11/24/18 at 12:00; Stop 12/24/18 at 11:59 Zolpidem Tartrate (Ambien) 5 mg HS MAY REPEAT X 1 PRN PO INSOMNIA Last administered on 11/30/18 22:00; Admin Dose 5 MG; Start 11/24/18 at 21:00 Levofloxacin (Levaquin) 250 mg DAILY@06 PO Last administered on 12/01/18 06:16; Admin Dose 250 MG; Start 11/26/18 at 06:00; Stop 12/03/18 at 05:59 GE PATE NP December 01, 2018 13:33
--- NOTE | 2018-12-01 14:16 | DS ---
Date/Time of Note Date/Time of Note DATE: 12/01/18 TIME: 14:15 Discharge Summary Admission/Discharge Info Admit Date/Time November 22, 2018 at 18:00 Discharge Date/Time December 01, 2018 at 11:50 Discharge Diagnosis 1.Left intertrochanteric hip fracture status post intramedullary nailing. 2. Anemia. 3. Constipation. 4. Atherosclerotic heart disease. 5. Improvements in self-care and mobility. Patient Condition: Good Hospital Course The patient was admitted for comprehensive interdisciplinary rehabilitation and made steady functional gains from a Mod/max level to a SBA level for self care tasks and mobility including ambulating over 150 feet with the use of a FWW. Patient is being discharged home with the recommendation of home health PT, OT and RN follow up. The DC meds are per the medication reconciliation sheet. The discharge equipment recommendations include: FWW, BSC, shower chair. The patient will follow up with PMD upon DC. Home Meds Active Scripts Ondansetron Hcl* (Ondansetron Hcl* Inj) 4 Mg/2 Ml Vial, 4 MG IV Q6H PRN for NAUSEA/VOMITING for 14 Days, VIAL Prov:GE PATE V. DATA PROCESSING AUDITOR 11/22/18 Oxycodone Hcl* (IR) (Roxicodone*) 5 Mg Tab, 5 MG PO Q4H PRN for MODERATE PAIN LEVEL 4-6 for 14 Days, TAB Prov:GE PATE V. DATA PROCESSING AUDITOR 11/22/18 Acetaminophen* (Tylenol*) 325 Mg Tablet, 650 MG PO Q6H PRN for .PAIN 1-3 OR TEMP for 14 Days, TAB Prov:GE PATE V. DATA PROCESSING AUDITOR 11/22/18 Enoxaparin Sodium* (Enoxaparin Sodium*) 40 Mg/0.4 Ml Syringe, 40 MG SC DAILY for 14 Days Prov:GE PATE V. DATA PROCESSING AUDITOR 11/22/18 Primary Care Provider Not On Staff Doctor CLEMENTINE SANCHEZ MD December 01, 2018 14:16
== END 2018-12-01 11:50 | disposition home health service (06) | DRG 560 ==
LOC: VRC 18:00
PROVIDERS: ADMIT Physical Medicine & Rehabilitation; ATTEND Internal Medicine Pulmonary Disease
PROC: F07Z5ZZ Bed Mobility Treatment (ICD-10-PCS; principal; 2018-11-22)
PROC: F08Z2ZZ Grooming/Personal Hygiene Treatment (ICD-10-PCS; 2018-11-22)
DX: S72.142D Displaced intertrochanteric fracture of left femur, subsequent encounter for closed fracture with routine healing (principal); N39.0 Urinary tract infection, site not specified; G89.18 Other acute postprocedural pain; Z98.890 Other specified postprocedural states; I25.10 Atherosclerotic heart disease of native coronary artery without angina pectoris; M97.02XD Periprosthetic fracture around internal prosthetic left hip joint, subsequent encounter; W19.XXXD Unspecified fall, subsequent encounter; D64.89 Other specified anemias; K59.00 Constipation, unspecified; D64.9 Anemia, unspecified
CPT/HCPCS: 80053; 81003; 82728; 83540; 85025; 87081; 87086; 97110; 97112; 97116; 97150; 97162; 97165; 97530; 97535; 97542; J0696; J1650

== ENCOUNTER 2019-03-27 13:58 | Inpatient (IN) | payer MEDICARE, OTHER ==
[~2019-03-27] VITALS: Ht 167.6 cm; Wt 47.7 kg
[~2019-03-27 13:58] MED LIST changes: +ACET-141 PO; +HYDR25TA6 ORAL
[2019-03-27] MEDS ORDERED: ONDANSETRON 4 MG INJ IV PRN ×2 (18:00→19:00)
[2019-03-27] MEDS ORDERED: ASPIRIN 325 MG TAB PO ONE (18:00)
[2019-03-27] MEDS ORDERED: ACETAMINOPHEN 325 MG TAB PO PRN ×2 (18:00→19:00)
[2019-03-27] MEDS ORDERED: NITROGLYCERIN (SL) 0.4 MG TAB SL PRN (19:00)
[2019-03-27] MEDS ORDERED: LORAZEPAM 2 MG INJ IV PRN (19:00)
[2019-03-27] MEDS ORDERED: MAGNESIUM HYDROXIDE 30ML CUP PO PRN (19:00)
[2019-03-27] MEDS ORDERED: HYDROCODONE/APAP (5/325) TAB PO PRN (19:00)
[2019-03-27] MEDS ORDERED: morphine 2 MG INJ IV PRN (19:00)
[2019-03-27] MEDS ORDERED: DOCUSATE SODIUM 100 MG CAP PO PRN (19:00)
[2019-03-27] MEDS ORDERED: NACL 0.9% 3 ML SYG IV SCH (19:00)
[2019-03-27] MEDS ORDERED: hydrALAzine 20 MG INJ IV PRN (19:00)
[2019-03-27] MEDS ORDERED: ALBUTEROL/IPRATROPIUM (NEB) 3 ML AMP HHN PRN (19:00)
[2019-03-27 20:01] VITALS: BP 137/64; PULSE 85; RESP 19
[2019-03-27 20:30] VITALS: Ht 167.6 cm; Wt 47.7 kg
[2019-03-27] MEDS: SOD CHLORIDE 0.45% 1,000 ML IV SCH (21:00)
[2019-03-27 23:40] VITALS: BP 140/56; PULSE 71; RESP 19
[2019-03-28] VITALS: PULSE 72
[2019-03-28 04:10] VITALS: BP 129/60; PULSE 67; RESP 18
[2019-03-28] MEDS: SOD CHLORIDE 0.45% 1,000 ML IV SCH (07:32)
[2019-03-28 07:42] VITALS: BP 148/65; PULSE 71; RESP 19
[2019-03-28 11:57] VITALS: BP 139/61; PULSE 79; RESP 19
[2019-03-28 15:28] VITALS: BP 153/68; PULSE 86; RESP 20
[2019-03-28 19:53] VITALS: BP 142/62; PULSE 84; RESP 17
== END 2019-03-28 20:12 | disposition home health service (06) | DRG 563 ==
LOC: FTE 13:58 → TEL 17:57
PROVIDERS: ADMIT Hospitalist; ATTEND Family Medicine
DX: S52.501A Unspecified fracture of the lower end of right radius, initial encounter for closed fracture (principal); S52.601A Unspecified fracture of lower end of right ulna, initial encounter for closed fracture; F17.200 Nicotine dependence, unspecified, uncomplicated; I10 Essential (primary) hypertension; Z86.73 Personal history of transient ischemic attack (TIA), and cerebral infarction without residual deficits; W01.0XXA Fall on same level from slipping, tripping and stumbling without subsequent striking against object, initial encounter
CPT/HCPCS: 36415; 70450; 70551; 71045; 80048; 80061; 83036; 83735; 84100; 84439; 84443; 84484; 85025; 85610; 85730; 92610; 93005; 93306; 93880; 97161; 97167